=== PATIENT | female | born 1990 | race Caucasian/White ===

== ENCOUNTER 2018-10-03 08:17 | Emergency (ER) | payer BC ==
--- OUTSIDE RECORDS SUMMARY | 2018-10-03 08:19 | XMS REPORT | Clinical Summary ---
:1990 Author Organization [facility] Address [address] [place] [address] Care Team Providers Name Role Phone Arminda Irene MD Primary Care Provider Allergies Active Allergy Reactions Severity Noted Date Comments [place] 06/26/2017 Atomoxetine 06/26/2017 Sunscreen 06/26/2017 Medications Medication Sig Dispensed Refills Start Date End Date Status fexofenadine (RAMIOR) Take 180 mg by 0 Active 180 MG tablet mouth daily. 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 Last Filed Vital Signs Not on file Plan of Treatment Health Maintenance Due Date Last Done Comments CERVICAL CANCER SCREENING 2011 INFLUENZA VACCINE 04/18/2018 06/26/2017 Results Not on fileafter 10/02/2017 Insurance Payer Benefit Plan / Group Subscriber ID Type Phone Address BCBS BCBS CHOICE PPO/FEDERAL EMPL PPO xxxxxxxxxxxx PPO Advance Directives Patient has advance care planning documents, and code status on file. For more information, please contact:[address] [address] Code Status Date Activated Date Inactivated Comments Full Code 06/26/2017 9:26 PM 06/28/2017 1:38 AM Code Status decision reached by: Patient
--- OUTSIDE RECORDS SUMMARY | 2018-10-03 08:20 | XMS REPORT | Continuity of Care Document ---
:1990 Author Organization Interface Problems Problem Status Onset Classification Date Comments Source Date Reported Discharge 07/25/20 07/28/2017 [facility] Diagnosis: 17 Medical Contusion of Center unspecified front wall of thorax, initial encounter HALF-WAY Active 07/25/20 [place] [id number] [facility] RT ARM NUMBNESS, Active 06/29/20 [facility] MUSCLE RT ARM [address] [place] [address] WEAKNESS [place] RIGHT ARM NUMB, Active 06/29/20 [facility] N/V/CANDELARIO [address] [place] [address] Center Acute Resolved Problem 07/28/2017 [facility] cerebrovascular Medical accident (<[facility] Center ID="[id number]"> Confirmed</[facility]>) Migraines Active Problem 07/28/2017 [facility] PARESTHESIA OF Active [facility] SKIN [facility] Medications Medication Details Route Status Patient Ordering Order Source Instructions Provider Date tramadol 50 mg 50 mg=1 tab, PO, Active [facility] oral tablet BID, X 15 day, # 2017 Medical 30 tab, 0 Center Refill(s) Tylenol with 1 tab, PO, Q6H, Active [facility] Codeine #3 oral PRN Pain, X 7 2017 Medical tablet day, # 28 tab, 0 Center Refill(s) ibuprofen 600 mg, 1 tab, Inactive 07/25[facility] Route: PO, Drug 2017 Medical form: TAB, ONCE, Center Dosing Weight 77.273, kg, Priority: STAT, Start date: 07/25/17 12:33:00 HOME ADVISOR, Stop date: 07/25/17 12:33:00 CSTNotes: (Same as: Motrin) "Do Not Crush" Take with food. acetaminophen-c 1 tab, Route: Inactive 07/25[facility] odeine #3 PO, Drug Form: 2017 Medical TAB, Dosing Center Weight 77.273, kg, ONCE, STAT, Start date: 07/25/17 12:33:00 HOME ADVISOR, Stop date: 07/25/17 12:33:00 CSTNotes: Do not exceed 4gm/day of acetaminophen. (Same as: Tylenol with Codeine # 3) Visipaque 100 mL, Route: Inactive [facility] 320mg/ml IVP, Drug Form: 2017 Medical SOLN, Dosing Center Weight 77.273, kg, ONCALL, STAT, Start date: 07/25/17 11:04:00 HOME ADVISOR, Duration: 1 doses or times, Dose=2.2ml/kg, Max [id number] -- "To be infused by Radiology Staff ONLY" Saline Flush 10 mL, Route: Inactive [facility] 0.9% IVP, Drug Form: 2017 Medical INJ, Dosing Center Weight 77.273, kg, PRN, PRN Line Flush, Start date: 07/25/17 10:04:00 HOME ADVISOR, Duration: 30 day, Stop date: 08/24/17 10:03:00 CSTNotes: Same as: BD Posiflush Sterile ondansetron 4 mg, 2 mL, Inactive [facility] Route: IVP, Drug 2016 Medical form: INJ, ONCE, Center Dosing Weight 77.273, kg, Priority: STAT, Start date: 07/25/17 10:02:00 HOME ADVISOR, Stop date: 07/25/17 10:02:00 CSTNotes: (Same as: Zofran) MEDICATION WASTE Product Size: 4 mg Product Wasted: ___ mg morphine 4 mg, 1 mL, Inactive [facility] Sulfate Route: IVP, Drug 2016 Medical form: SOLN, Center ONCE, Dosing Weight 77.273, kg, Priority: STAT, Start date: 07/25/17 10:02:00 HOME ADVISOR, Stop date: 07/25/17 10:02:00 CSTNotes: (Same as:MORPhine Sulfate) atorvastatin 80 80 mg=1 tab, PO, Active [place] mg oral tablet Bedtime, # 60 2016 Medical tab, 2 Center Refill(s), Pharmacy: [facility]/pharmacy #[id number] magnesium oxide 400 mg=1 tab, Active [place] 400 mg oral PO, Daily, X 7 2016 Medical tablet day, # 7 tab, 0 Center Refill(s), Pharmacy: [facility]/pharmacy #[id number] Versed 0.5 mg, Route: Inactive [place] IV, ONCE, Dosing 2016 Medical Weight 72.727, Center kg, Start date: 06/30/17 17:06:00 CDT, Stop date: 06/30/17 17:06:00 CDT Ativan 1 mg, 0.5 mL, No Longer [place] Route: IVP, Drug Active 2016 Medical form: INJ, ONCE, Center Dosing Weight 72.727, kg, PRN Anxiety, Start date: 06/30/17 17:04:00 CDTNotes: (Same as: Ativan) ketOROLAC 15 15 mg, 1 mL, No Longer [place] mg/mL Route: IVP, Drug Active 2016 Medical injectable form: INJ, Q6H, Center solution Dosing Weight 72.727, kg, PRN Pain Score 4-6, Start date: 06/30/17 17:00:00 CDT, Duration: 4 day, Stop date: 07/04/17 16:59:00 CDTNotes: (Same as:Toradol) IV bolus must be given >15 seconds. Give IM administration slowly and deeply into the muscle. Not for use > 4 days. Ativan 1 mg, 0.5 mL, Inactive [place] Route: IVP, Drug 2016 Medical form: INJ, ONCE, Center Dosing Weight 72.727, kg, PRN Anxiety, Start date: 06/30/17 15:44:00 CDTNotes: (Same as: Ativan) Magnesium 2 gm, 50 mL, Inactive [place] Sulfate Route: IVPB, 2016 Medical Drug form: INJ, Center ONCE, Dosing Weight 72.727, kg, Start date: 06/30/17 13:03:00 CDT, Duration: 2 hr, Stop date: 06/30/17 13:03:00 CDTNotes: WASTE: F/P - Sink; E - Municipal Trash Bin NS (Bolus) IV 1,000 mL, 1,000 Inactive [place] ml/hr, Infuse 2017 Medical Over: 1 hr, Center Route: IV, 1,000, Drug form: INJ, ONCE, Priority: STAT, Dosing Weight 72.727 kg, Start date: 06/30/17 11:04:00 CDT, Duration: 1 doses or times, Stop date: 06/30/17 11:04:00 CDT aspirin 81 mg 81 mg, 1 tab, No Longer [place] tablet, enteric Route: PO, Drug Active 2016 Medical coated form: ECTAB, Center Daily, Dosing Weight 72.727, kg, Start date: 06/30/17 9:00:00 CDT, Duration: 30 day, Stop date: 07/29/17 9:00:00 CSTNotes: Do not crush or chew. (Same As: Ecotrin) Zofran 4 mg, 1 tab, No Longer [place] Route: PO, Drug Active 2016 Medical form: TAB, Q8H, Center Dosing Weight 72.727, kg, PRN Nausea, Start date: 06/30/17 7:43:00 CDT, Duration: 30 day, Stop date: 07/30/17 7:42:00 CSTNotes: (Same as: Zofran) Phenergan 6.25 mg, 0.5 Inactive [place] tab, Route: PO, 2016 Medical Drug form: TAB, Center ONCE, Dosing Weight 72.727, kg, Start date: 06/30/17 2:43:00 CDT, Stop date: 06/30/17 2:43:00 CDT Saline Flush 10 ml, Route: No Longer [place] 0.9% MISC, Drug Form: Active 2017 Medical INJ, Dosing Center Weight 72.727, kg, Q12H, Start date: 06/29/17 21:00:00 CDT, Duration: 30 day, Stop date: 07/29/17 9:00:00 CSTNotes: (Same as: BD Posiflush) atorvastatin 80 mg, 1 tab, No Longer [place] Route: PO, Drug Active 2016 Medical form: TAB, Center Bedtime, Dosing Weight 72.727, kg, Start date: 06/29/17 21:00:00 CDT, Duration: 30 day, Stop date: 07/28/17 21:00:00 CSTNotes: Same as Lipitor predniSONE 20 20 mg=1 tab, PO, Active [place] mg oral tablet Daily, # 10 tab, 2017 Medical 0 Refill(s) Center 200 ACTUAT 1 puff, INHALER, Active [place] Albuterol 0.09 Q6H, PRN for 2017 Medical MG/ACTUAT wheezing, # 8.5 Center Metered Dose gm, 0 Refill(s) Inhaler [ProAir HFA] Phenergan 12.5 mg, 0.5 mL, Inactive [place] Route: IVPB, 2016 Medical Drug form: INJ, Center ONCE, Dosing Weight 72.727, kg, PRN Nausea & Vomiting, Priority: NOW, Start date: 06/29/17 17:31:00 CDTNotes: Do not give IV push. (Same as: Phenergan) heparin 5,000 unit, 1 No Longer [place] mL, Route: Active 2016 Medical SUB-Q, Drug Center form: INJ, Q8H, Dosing Weight 72.727, kg, (For patients weighing Notes: porcine heparin Ativan 1 mg, 0.5 mL, Inactive [place] Route: IVP, Drug 2016 Medical form: INJ, ONCE, Center Dosing Weight 72.727, kg, PRN Anxiety, Start date: 06/29/17 15:40:00 CDTNotes: (Same as: Ativan) Ondansetron 4 mg, 2 mL, Inactive [facility] Route: IVP, Drug 2016 Medical form: INJ, ONCE, Center Dosing Weight 72.727, kg, Priority: STAT, Start date: 06/29/17 14:59:00 CDT, Stop date: 06/29/17 14:59:00 CDTNotes: (Same as: Zofran) MEDICATION WASTE Product Size: 4 mg Product Wasted: ___ mg Saline Flush 10 ml, Route: No Longer [place] 0.9% MISC, Drug Form: Active 2016 Medical INJ, Dosing Center Weight 72.727, kg, PRN, PRN Line Flush, Start date: 06/29/17 14:31:00 CDT, Duration: 30 day, Stop date: 07/29/17 13:30:00 CSTNotes: (Same as: BD Posiflush) Acetaminophen 650 mg, 2 tab, No Longer [place] Route: PO, Drug Active 2016 Medical form: TAB, Q4H, Center Dosing Weight 72.727, kg, PRN Pain 1-3/Temp > 99.5 F, Start date: 06/29/17 14:31:00 CDT, Duration: 30 day, Stop date: 07/29/17 14:30:00 CSTNotes: Do not exceed 4 gm/day. (Same as: Tylenol) Iohexol 100 mL, Route: Inactive [facility] IVP, Drug Form: 2016 Medical SOLN, Dosing Center Weight 72.727, kg, ONCALL, STAT, Start date: 06/29/17 13:37:00 CDT, Duration: 1 doses or times, Dose=2.2ml/kg, Max wans=994fm -- "To be infused by Radiology Staff ONLY" Saline Flush 10 mL, Route: No Longer [place] 0.9% IVP, Drug Form: Active 2016 Medical INJ, Dosing Center Weight 72.727, kg, PRN, PRN Line Flush, Start date: 06/29/17 13:19:00 CDT, Duration: 30 day, Stop date: 07/29/17 12:18:00 CSTNotes: (Same as: BD Posiflush) Allergies, Adverse Reactions, Alerts Substance Category Reaction Severity Reaction Status Date Comments Source type Reported Strattera Assertion Drug Active [facility] Immunizations Immunization Date Given Site Status Last Updated Comments Source Results Order Name Results Value Reference Date Interpretation Comments Source Range CHEM PANEL eGFR 110 07/25 Result Comment: The eGFR is calculated using the CKD-EPI formula. In most young, healthy individuals the eGFR will be >90 mL/ min/1.73m2. The eGFR declines with age. An eGFR of 60-89 may be normal in [facility] mL/min/1.7 some populations, particularly the elderly, for whom the CKD-EPI formula has not been extensively validated. Use of the eGFR is not recommended in the following populations: [address] Individuals with unstable creatinine concentrations, including patients and those with serious co-morbid conditions. Patients with extremes in muscle mass or diet. The data above are obtained from the National Kidney Disease Education Program (NKDEP) which additionally recommends that when the eGFR is used in patients with extremes of body mass index for purposes of drug dosing, the eGFR should be multiplied by the estimated BMI. CHEM PANEL Chloride Lvl 105 meq/L 95 - 109 07/25 [facility] 2017 [facility] Center CHEM PANEL AGAP 11.7 meq/L 10.0 - 07/25 [facility] 20.0 [facility] CHEM PANEL Creatinine 0.75 mg/dL 0.50 - 07/25 [facility] Lvl 1.40 [facility] CHEM PANEL Calcium Lvl 9.1 mg/dL 8.5 - 10.5 07/25 [facility] CHEM PANEL CO2 26 meq/L 24 - 32 07/25 [facility] CHEM PANEL Potassium Lvl 3.7 meq/L 3.5 - 5.1 07/25 [facility] CHEM PANEL Sodium Lvl 139 meq/L 135 - 145 07/25 [facility] CHEM PANEL Glucose Lvl 83 mg/dL 70 - 99 07/25 [facility] CHEM PANEL BUN 11 mg/dL 7 - 22 07/25 [facility]2016 [facility] URINE CHEM U Preg Negative Negative 07/25 [facility] (07/25/17 12:20 PM) Center IMMUNOLOGY CDC HIV 4th Negative Negative 07/25 [facility] *NA* Center (07/25/17 12:00 PM) Chest/Abdom Chest/Abdomen EXAM: CT CHEST WITH CONTRAST 07/25 - [facility] en/Pelvis w /Pelvis w IV /2016 - [facility] IV contrast contrast CT EXAM: CT ABDOMEN AND PELVIS WITH CONTRAST This report was dictated by a Goods Layer/Fellow. I have personally reviewed the images as Center CT well as the Resident's interpretation and agree with the findings. Read by: Yesenia Marshall Resident: Yesenia Marshall Dictated Date/time: 07/25/17 11:04 DATE: 07/25/2017 10:04 AM HOME ADVISOR Electronically Signed by: Feliciano Mcdaniels MD 07/25/17 12:00 FINAL REPORT INDICATION: - HALF-WAY, midline cervical/thoracic tenderness, concern for sternal fracture, LLQ pain COMPARISON: None TECHNIQUE: Volumetric CT acquisition of the chest, abdomen and pelvis following intravenous administration of contrast. Delayed imaging was then performed through the abdomen and pelvis, using a radiati on reduction technique. Axial, coronal and sagittal reformats. Contrast phases: Venous and delayed IV contrast: 95.3 ml of Visipaque Oral contrast: None. DLP: 3096 mGy-cm UT SECTION: ER FINDINGS: Lines and tubes: None. Lower Neck: Supraclavicular soft tissues are unremarkable. Thoracic Aorta and Mediastinum: A very small hematoma is seen about the sternomanubrial junction, with superficial subcutaneous stranding. No other mediastinal hematoma or thoracic aortic injury. Normal heart and pericardium. Lungs, Pleura, Diaphragm: No pulmonary contusions. Bilateral subsegmental atelectasis noted. No pleural effusion or pneumothorax. No diaphragmatic injury. Liver and biliary tree: Normal. No injury. No biliary abnormality. Gallbladder: Normal. No CT evidence of gallstones. No injury. Pancreas: Normal. No injury. Spleen: Normal. No injury. Adrenals: Normal. No injury. Kidneys and ureters: Normal. No injury. Bladder: Normal. No injury. Reproductive organs: No injury. An intrauterine device is noted in the uterus.A left ovarian simple cyst is noted, measuring 1.5 cm in diameter. Gastrointestinal tract: Normal. No bowel injury. Normal appendix. Peritoneum and retroperitoneum: No fluid collections or free air. Lymph nodes: Normal. Vasculature: No vascular injury. Spine/ Bones: The manubrium sternum is slightly posteriorly displaced with respect to the sternal body. The degree of displacement is about one quarter shaft width. No acute abnormality of the spine. No other bony injury. Soft tissues: Normal. IMPRESSION: 1. Posterior displacement of the manubrium sternum with surrounding retrosternal and presternal hematoma. 2. Bilateral subsegmental atelectasis. 3. No other acute abnormality noted. Brain wo Brain wo 07/25 - [facility] contrast CT contrast CT /2017 - [facility] EXAMINATION: CT head without contrast Read by: Kvng Jacinto MD Dictated Date/time: 07/25/17 12:07 Electronically Signed by: Kvng Jacinto MD 07/25/17 12:11 FINAL REPORT DATE: 07/25/2017 INDICATION: Right upper extremity weakness. FINDINGS: Noncontrast CT images of the head are compared to a study dated 2016. There is no edema, hemorrhage, or other acute intracranial abnormality. Aspect score 10. There is been significant interval progression of inflammatory sinus disease with near-total opacification of the maxillary air cells. IMPRESSION: No acute brain abnormality. Spine Spine EXAM: CT CERVICAL SPINE WITHOUT CONTRAST 07/25 - [facility] cervical wo cervical wo /2016 - Medical contrast CT contrast CT This report was dictated by a Goods Layer/Fellow. I have personally reviewed the images as Center well as the Resident's interpretation and agree with the findings. DATE: 07/25/2017 10:04 AM HOME ADVISOR Read by: Yesenia Marshall Resident: Yesenia Marshall Dictated Date/time: 07/25/17 10:43 Electronically Signed by: Feliciano Mcdaniels MD 07/25/17 11:16 FINAL REPORT INDICATION: - HALF-WAY, midline cervical/thoracic tenderness, concern for sternal fracture, LLQ pain COMPARISON: None TECHNIQUE: Volumetric acquisition of the cervical spine without contrast. Axial, sagittal and coronal reconstructions. IV contrast: None. DLP: 708 mGy-cm UT SECTION: ER FINDINGS: The spine is imaged from the skull base to the level of cervicothoracic junction. No acute fracture or malalignment is identified. The prevertebral and paravertebral soft tissues are unremarkable. No pneumothorax identified in the lung apices. IMPRESSION: No acute abnormality. Spine Spine entire MRI OF THE ENTIRE SPINE WITHOUT AND WITH CONTRAST [facility] w/wo w/wo contrast /2017 - Medical contrast MRI Center MRI DATE: 06/30/2017 at 4:10 PM. Read by: Joshua Pavon MD Dictated Date/time: 06/30/17 19:04 Electronically Signed by: Joshua Pavon MD 06/30/17 19:08 FINAL REPORT HISTORY: Right upper extremity weakness. T4 sensory level. TECHNIQUE: Pre and postcontrast multiplanar MR imaging was performed utilizing T1 and T2 weighting. 14 cc of MultiHance contrast was administered intravenously. FINDINGS: The bony vertebrae from C1 through the sacrum are intact and in normal anatomic alignment. There is normal marrow signal arising from visualized osseous structures. C2-C3 to L5-S1: The intervertebral discs are well-maintained demonstrating normal height and hydration. There are no disc bulges or disc protrusions. There is no compromise of the spinal canal or the neural foramina. The signal within the brainstem and spinal cord is normal. There is no abnormal contrast enhancement. Conus medullaris terminates at the T12-L1 level. There is no cord tethering. IMPRESSION: 1. Normal MRI of the entire spine without and with contrast. LIPIDS CHD Risk 5.34 3.90 - 06/29 [facility] 5.80 [facility] LIPIDS HDL 41 mg/dL >=61 mg/dL 06/29 [facility] LIPIDS Chol 219 mg/dL <=199 06/29 [facility] mg/dL [facility] LIPIDS Trig 166 mg/dL <=149 06/29 [facility] mg/dL [facility] LIPIDS LDL 145 mg/dL <=99 mg/dL 06/29 [facility] (Calculated) [facility] LIPIDS VLDL 33 06/29 [facility] SPECIAL Hgb A1C 5.1 % <=5.6 % 06/29 [facility] CHEMISTRY [facility] DRUG SCREEN U Phencyc Scr Negative Negative 06/29 [facility] *NA* [place] (06/29/17 2:45 PM) DRUG SCREEN U [facility]ab [facility] [place] (06/29/17 2:45 PM) DRUG SCREEN UDS Note See Note 06/29 [facility] (06/29/17 2:45 PM) [place] DRUG SCREEN U Opiate Scr Negative Negative 06/29 [facility] *NA* [place] (06/29/17 2:45 PM) DRUG SCREEN U Cocaine Scr Negative Negative 06/29 [facility] *NA* [place] (06/29/17 2:45 PM) DRUG SCREEN U Amph Scr Negative Negative 06/29 [facility] [place] (06/29/17 2:45 PM) DRUG SCREEN U Xochitl Scr Positive Negative 06/29 [facility] [place] (06/29/17 2:45 PM) DRUG SCREEN U Benzodia Negative Negative 06/29 [facility] *NA* [place] (06/29/17 2:45 PM) URINE AND UA 2.0 EU/dL 0.1 - 1.0 06/29 [facility] Urobilinogen [facility] URINE AND UA Nitrite Negative Negative 06/29 [facility] STOOL [facility] (06/29/17 2:45 PM) [place] URINE AND UA Blood Trace Negative 06/29 [facility] Medical ABN* [place] (06/29/17 2:45 PM) URINE AND UA Leuk Est Negative Negative 06/29 [facility] (06/29/17 2:45 PM) Center URINE AND UA pH 6.5 5.0 - 8.0 06/29 [facility] STOOL [facility] URINE AND UA Bili Negative Negative 06/29 [facility] STOOL Medical *NA* [place] (06/29/17 2:45 PM) URINE AND UA Glucose Negative Negative 06/29 [facility] (06/29/17 2:45 PM) [place] URINE AND UA Protein Negative Negative 06/29 [facility] (06/29/17 2:45 PM) [place] URINE AND UA Color Yellow Yellow 06/29 [facility] Medical *NA* [place] (06/29/17 2:45 PM) URINE AND UA Turbidity Clear Clear 06/29 [facility] (06/29/17 2:45 PM) [place] URINE AND UA Ketones Negative Negative 06/29 [facility] *NA* [place] (06/29/17 2:45 PM) URINE AND UA Spec Grav 1.140 <=1.030 06/29 [facility] [address] [place] [address] URINE AND UA Sq Epi Few /LPF Few /LPF 06/29 [facility] URINE AND UA RBC 0-2 /HPF 0 - 2 06/29 [facility] URINE AND UA WBC 0-2 /HPF None Seen 06/29 [facility] STOOL /[facility] URINE AND UA Bacteria Occasional None Seen 06/29 [facility] STOOL /HPF /HPF [facility] IMMUNOLOGY CDC HIV 4th Negative Negative 06/29 [facility] *NA* [place] (06/29/17 2:33 PM) CARDIAC Total CK 46 unit/L 12 - 191 06/29 [facility] ENZYMES [facility] CARDIAC CK MB null 0.5 - 3.6 06/29 [facility] ENZYMES [facility] CARDIAC Troponin-I null 0.00 - 06/29 [facility] ENZYMES 0.40 [facility] CARDIAC CK-MB INDEX null 0.0 - 2.5 06/29 [facility] CHEM PANEL eGFR 87 06/29 Result Comment: The eGFR is calculated using the CKD-EPI formula. In most young, healthy individuals the eGFR will be >90 mL/ min/1.73m2. The eGFR declines with age. An eGFR of 60-89 may be normal in [facility] mL/min/1.7 some populations, particularly the elderly, for whom the CKD-EPI formula has not been extensively validated. Use of the eGFR is not recommended in the following populations: [address] Individuals with unstable creatinine concentrations, including patients and those with serious co-morbid conditions. Patients with extremes in muscle mass or diet. The data above are obtained from the National Kidney Disease Education Program (NKDEP) which additionally recommends that when the eGFR is used in patients with extremes of body mass index for purposes of drug dosing, the eGFR should be multiplied by the estimated BMI. CHEM PANEL Sodium Lvl 139 meq/L 135 - 145 06/29 [facility] CHEM PANEL CO2 26 meq/L 24 - 32 06/29 2016 [facility] CHEM PANEL Calcium Lvl 9.1 mg/dL 8.5 - 10.5 06/29 2016 [facility] CHEM PANEL Chloride Lvl 104 meq/L 95 - 109 06/[address] CHEM PANEL Potassium Lvl 4.1 meq/L 3.5 - 5.1 06/[address] CHEM PANEL Creatinine 0.91 mg/dL 0.50 - 06/29 [facility] Lvl 1.40 [facility] CHEM PANEL AGAP 13.1 meq/L 10.0 - 06/29 [place] 20.0 [facility] CHEM PANEL Glucose Lvl 95 mg/dL 70 - 99 06/[address] [place] [address] CHEM PANEL BUN 10 mg/dL 7 - 22 06/[address] [place] [address] HEMATOLOGY INR 0.99 0.85 - 06/29 [place] 1.17 [facility] HEMATOLOGY PT 13.3 s 12.0 - 06/29 [place] 14.7 [facility] HEMATOLOGY PTT 30.7 s 22.9 - 06/29 [place] 35.8 [facility] HEMATOLOGY Platelet 286 K/CMM 133 - 450 06/29 [facility] HEMATOLOGY MPV 9.5 fL 7.4 - 10.4 06/[address] [place] [address] HEMATOLOGY RDW 13.4 % 11.5 - 06/29 [place] 14.5 [facility] HEMATOLOGY WBC 9.9 K/CMM 3.7 - 10.4 06/[address] [place] [address] HEMATOLOGY RBC 5.43 M/CMM 4.20 - 06/29 [place] 5.40 [facility] HEMATOLOGY MCV 86.9 fL 80.0 - 06/29 [facility] [place] 98.0 [facility] HEMATOLOGY Hgb 15.6 g/dL 12.0 - 06/29 16.0 [facility] HEMATOLOGY MCH 28.8 pg 27.0 - 06/29 31.0 [facility] HEMATOLOGY MCHC 33.2 g/dL 32.0 - 06/29 36.0 [facility] HEMATOLOGY Hct 47.1 % 36.0 - 06/29 [place] 48.0 [facility] HEMATOLOGY Segs-Bands # 6.9 K/CMM 1.5 - 8.1 06/29 [facility] HEMATOLOGY Lymphocytes # 1.6 K/CMM 1.0 - 5.5 06/29 2016 [facility] HEMATOLOGY Eosinophils # 0.3 K/CMM 0.0 - 0.5 06/29 [facility] HEMATOLOGY Monocytes # 1.1 K/CMM 0.0 - 0.8 06/29 [facility] HEMATOLOGY Lymphocytes 16.1 % 20.0 - 06/29 40.0 [facility] HEMATOLOGY Segs 69.7 % 45.0 - 06/29 [place] 75.0 /2016 [facility] HEMATOLOGY Monocytes 11.0 % 2.0 - 12.0 06/29 [facility] HEMATOLOGY Eosinophils 2.7 % 0.0 - 4.0 06/29 [facility] HEMATOLOGY Basophils 0.5 % 0.0 - 1.0 06/[address] Brain wo Brain wo EXAM: MRI BRAIN WITHOUT CONTRAST 06/29 [facility] contrast contrast [facility] DATE: 06/29/2017 4:30 PM CDT Read by: Renny Reyes MD Dictated Date/time: 06/29/17 16:47 Electronically Signed by: Renny Reyes MD 06/29/17 16:55 FINAL REPORT INDICATION: 27 years old Female patient with history of right arm weakness and sensory loss. COMPARISON: CT Scan of the brain dated 06/29/2017 at 1:30 PM TECHNIQUE: Axial DWI, axial T2 FLAIR, axial GRE sequences were obtained through the brain as per limited stroke protocol. FINDINGS: T2 FLAIR sequence is motion degraded. Diffusion-weighted images do not demonstrate any abnormal restricted diffusion to suggest acute infarct. The signal intensities of the basal ganglia, thalami, brainstem, cerebellar hemispheres are within normal limits. There is no mass effect or midline shift. No evidence of acute or chronic intracranial hemorrhage is seen. Ventricles are normal in size and configuration. No pathological extra- axial fluid collection is identified. Cerebral sulci and basal cisterns are well preserved. Mucosal thickening along the inferior wall of the both maxillary sinuses, remaining visualized paranasal sinuses are clear. Visualized mastoid air cells are clear. Visualized orbits appear grossly unremarkable. IMPRESSION: 1. No evidence of acute infarct or intracranial hemorrhage. 2. No definite abnormality on limited stroke protocol MRI. Brain Brain Stroke EXAM: CT BRAIN WITHOUT CONTRAST 06/29 [facility] Stroke wo wo contrast /2016 - Medical contrast CT CT This report was dictated by a Goods Layer/ Fellow. I have personally reviewed the images as Center well as the Resident's interpretation and agree with the findings. DATE: 06/29/2017 1331 hours Read by: Serge Monteiro MD Resident: Serge Monteiro MD Dictated Date/time: 06/29/17 14:00 Electronically Signed by: Shanthi Haddad 06/29/17 15:14 FINAL REPORT INDICATION: Right upper extremity weakness COMPARISON: None. TECHNIQUE: Routine axial CT images of the brain were obtained. Coronal and sagittal reformats are provided. IV contrast: None. DLP: 737 mGy-cm FINDINGS: Non-contrast images of the head demonstrate no edema, hemorrhage, mass lesion or other acute intracranial abnormality. There is no chronic abnormality. ASPECTS: 10 Laterality: none Caudate: normal Internal capsule: normal Lenticular: normal Insula: normal M1: normal M2: normal M3: normal M4: normal M5: normal M6: normal The sinuses and skull base are unremarkable. IMPRESSION: No sign of acute cortical infarct or parenchymal hermorrhage. Brain/Neck Brain/Neck EXAM: CTA BRAIN 06/29 [facility] Stroke Stroke /2016 - Medical perfusion perfusion CTA EXAM: CTA NECK This report was dictated by a Goods Layer/Fellow. I have personally reviewed the images as Center CTA well as the Resident's interpretation and agree with the findings. EXAM: CT PERFUSION BRAIN Read by: Yaquelin Frausto MD Resident: Yaquelin Frausto MD Dictated Date/time: 06/29/17 14:41 Electronically Signed by: Shanthi Haddad 06/30/17 08:23 FINAL REPORT DATE: 06/29/2017 1:34 PM CDT INDICATION: Right upper extremity weakness COMPARISON: CT brain without contrast 06/29/2017 TECHNIQUE: - Dynamic CT perfusion images on a limited area of the brain parenchyma are performed during bolus injection of iodinated contrast material. Color maps of relative cerebral blood flow, relative cerebral blood volume, time to peak, and mean transit time are created on an independent workstation and are submitted along with the source image data. -Rapid acquisition spiral CT images of the brain and neck were obtained between the aortic arch and the cranial vertex during intravenous infusion of iodinated contrast for the purposes of CT angiograph y. 3-D CT angiographic images are created using MIP technique at the acquisition workstation. The source images are also presented for interpretation. IV contrast: 98 mL of 350 Omnipaque DLP: 3386 mGy-cm FINDINGS: NECK CTA: Aortic arch: No origin stenosis is identified. The vertebral artery origins are patent bilaterally. Carotid arteries: The cervical common carotid arteries and cervical internal carotid arteries have a normal course, caliber, and contour. There are areas of calcification at the carotid bifurcations. No hemodynamically significant stenosis of the carotid bifurcations or internal carotid arteries is present by NASCET criteria. There is no evidence of vascular injury. Vertebral arteries: The vertebral arteries have a normal caliber and contour. The left vertebral artery originates from the aortic arch. The soft tissues of the neck and other incidental structures are normal. BRAIN CTA: Anterior circulation: Normal appearance and a standard branching pattern. No branch occlusion, vascular injury, arteritis, vascular malformation or aneurysm is identified. Posterior circulation: Normal appearance and a standard branching pattern. No branch occlusion, vascular injury, arteritis, vascular malformation or aneurysm is identified. The [place] of [place] is normal. There is no evidence of cortical collateral circulation, collateral score is not applicable. The major venous sinuses are normal. There is asymmetry of the internal jugular vein, with prominence of the right internal jugular vein especially near the skull base. There is no vein thrombosis. The brain parenchyma and other incidental structures are unremarkable. CT PERFUSION: There is no regional abnormality in cerebral blood flow, cerebral blood volume, or transit time in the imaged areas of the brain to suggest active oligemia or infarction. IMPRESSION: 1. Normal CTA of the head. 2. Normal CTA of the neck. 3. Normal CT perfusion. (All qualitative and quantitative assessments of carotid bifurcation and proximal internal carotid artery stenosis are made referencing the distal internal carotid artery {NASCET criteria}.) Chest 1view Chest 1view EXAM: XR CHEST 1 VIEW 06/29 - [facility] DX - Medical This report was dictated by a Goods Layer/Fellow. I have personally reviewed the images as Center well as the Resident's interpretation and agree with the findings. DATE: 06/29/2017 1:19 PM CDT. Read by: Melisa Ruiz ( Fellow Resident: Melisa Ruiz (Fellow Dictated Date/time: 06/29/17 13:50 Electronically Signed by: David Angeles MD 06/29/17 14:17 FINAL REPORT INDICATION: Pain. COMPARISON: None. TECHNIQUE: AP chest. UT SECTION: ER FINDINGS: Lines, tubes and hardware: None. Lungs and pleura: Lungs are clear. No focal consolidation, pleural effusion , or pneumothorax is identified. Pulmonary vascularity is normal. Heart and mediastinum: The heart size is normal for technique. The mediastinal contours are normal. Bones: No acute skeletal abnormality is identified. Note made of gaseous distention of the stomach. IMPRESSION: No acute radiographic abnormality. Vital Signs Vital Sign Value Date Comments Source Respitory Rate 18 07/25/2017 [facility] Systolic (mm Hg) 123 07/25/2017 [facility] Diastolic (mm Hg) 80 07/25/2017 [facility] Temperature Oral (F) 98.9 F 07/25/2017 [facility] Heart Rate 81 07/25/2017 [facility] Systolic (mm Hg) 141 07/25/2017 [facility] Diastolic (mm Hg) 68 07/25/2017 [facility] Respitory Rate 18 07/25/2017 [facility] Heart Rate 80 07/25/2017 [facility] Weight 77.273 07/25/2017 [facility] Height 165.1 cm 07/25/2017 [facility] BMI Calculated 28.35 07/25/2017 [facility] Temperature Oral (F) 98.0 F 07/25/2017 [facility] Systolic (mm Hg) 134 07/25/2017 [facility] Diastolic (mm Hg) 85 07/25/2017 [facility] Heart Rate 70 07/25/2017 [facility] Respitory Rate 20 07/25/2017 [facility] Systolic (mm Hg) 111 07/01/2017 [facility] Diastolic (mm Hg) 70 07/01/2017 [facility] Respitory Rate 18 07/01/2017 [facility] Heart Rate 107 07/01/2017 [facility] Temperature Oral (F) 99.3 F 07/01/2017 [facility] Systolic (mm Hg) 129 06/30/2017 [facility] Diastolic (mm Hg) 63 06/30/2017 [facility] Systolic (mm Hg) 119 06/30/2017 [facility] Diastolic (mm Hg) 62 06/30/2017 [facility] Respitory Rate 18 06/30/2017 [facility] Heart Rate 89 06/30/2017 [facility] Temperature Oral (F) 97.4 F 06/30/2017 [facility] Heart Rate 102 06/30/2017 [facility] Temperature Oral (F) 98.3 F 06/30/2017 [facility] Respitory Rate 18 06/30/2017 [facility] Weight 72.727 06/29/2017 [facility] Height 165.1 cm 06/29/2017 [facility] BMI Calculated 26.68 06/29/2017 [facility] Weight 72.727 06/29/2017 [facility] BMI Calculated 25.88 06/29/2017 [facility] Height 167.64 cm 06/29/2017 [facility] Encounters Location Location Encounter Encounter Reason Attending ADM DC Status Source Details Type Number For Provider Date Date Visit [facility] [id number] Whitney 06/29 07/01 [facility] Roberto Choudhary /2016 [facility] [id number] Leeanna 07/25 07/25 [facility] Shanon /2016 [facility] Procedures Procedure Code Date Perfomer Comments Source Insertion of IUD [id number] [facility]
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
--- OUTSIDE RECORDS SUMMARY | 2018-10-03 08:21 | XMS REPORT | Summary of Care ---
:1990 Author Organization [facility] Address [address] [place] [id number] Encounter HQ Violetar_betty(FIN) [id number] Date(s): 06/29/17 - 06/30/[address] Professional Services provided by [facility] [place] [address]- Discharge Disposition: Home or Self Care Attending Physician: Whitney Choudhary MD Admitting Physician: Whitney Choudhary MD Vital Signs Most recent to oldest 1 2 3 [Reference Range]: Height 165.1 cm 167.64 cm (06/29/17 5:33 PM) (06/29/17 1:00 PM) Temperature Oral [96.4-99.1 99.3 DegF 97.4 DegF 98.3 DegF DegF] *HI* (06/30/17 3:08 PM) (06/30/17 11:52 AM) (06/30/17 7:23 PM) Blood Pressure 111/70 mmHg 129/63 mmHg 119/62 mmHg [90-140/60-90 mmHg] (06/30/17 7:23 PM) (06/30/17 6:00 PM) (06/30/17 5:45 PM) Respiratory Rate [14-20 18 BRMIN 18 BRMIN 18 BRMIN BRMIN] (06/30/17 7:23 PM) (06/30/17 3:08 PM) (06/30/17 11:52 AM) Peripheral Pulse Rate 107 bpm 89 bpm 102 bpm [60-100 bpm] *HI* (06/30/17 3:08 PM) *HI* (06/30/17 7:23 PM) (06/30/17 11:52 AM) Weight 72.727 kg 72.727 kg (06/29/17 5:33 PM) (06/29/17 1:00 PM) Body Mass Index 26.68 m2 25.88 m2 (06/29/17 5:33 PM) (06/29/17 1:00 PM) Problem List Condition Effective Dates Status Health Status Informant Acute cerebrovascular accident Resolved (CVA)(Confirmed) Allergies, Adverse Reactions, Alerts Substance Reaction Severity Status Strattera Active Medications acetaminophen 650 mg, 2 tab, Route: PO, Drug form: TAB, Q4H, Dosing Weight 72.727, kg, PRN Pain 1-3/Temp > 99.5 F, Start date: 06/29/17 14:31:00 CDT, Duration: 30 day, Stop date: 07/29/17 14:30:00 IMPORTER OR EXPORTER Notes: Do not exceed 4 gm/day. (Same as: Tylenol) Start Date: 06/29/17 Stop Date: 07/01/17 Status: Discontinuedaspirin 81 mg tablet, enteric coated 81 mg, 1 tab, Route: PO, Drug form: ECTAB, Daily, Dosing Weight 72.727, kg, Start date: 06/30/17 9:00:00 CDT, Duration: 30 day, Stop date: 07/29/17 9:00:00 IMPORTER OR EXPORTER Notes: Do not crush or chew.(Same As: Ecotrin) Start Date: 06/30/17 Stop Date: 07/01/17 Status: DiscontinuedAtivan 1 mg, 0.5 mL, Route: IVP, Drug form: INJ, ONCE, Dosing Weight 72.727, kg, PRN Anxiety, Start date: 06/30/17 17:04:00 CDT Notes: (Same as: Ativan) Start Date: 06/30/17 Stop Date: 07/01/17 Status: DiscontinuedAtivan 1 mg, 0.5 mL, Route: IVP, Drug form: INJ, ONCE, Dosing Weight 72.727, kg, PRN Anxiety, Start date: 06/29/17 15:40:00 CDT Notes: (Same as: Ativan) Start Date: 06/29/17 Stop Date: 06/29/17 Status: CompletedAtivan 2 mg, Route: IVP, Drug form: INJ, ONCE, Dosing Weight 72.727, kg, PRN Anxiety, Start date: 06/29/17 15:40:00 CDT Start Date: 06/29/17 Stop Date: 06/29/17 Status: DeletedAtivan 1 mg, 0.5 mL, Route: IVP, Drug form: INJ, ONCE, Dosing Weight 72.727, kg, PRN Anxiety, Start date: 06/30/17 15:44:00 CDT Notes: (Same as: Ativan) Start Date: 06/30/17 Stop Date: 06/30/17 Status: Completedatorvastatin 80 mg, 1 tab, Route: PO, Drug form: TAB, Bedtime, Dosing Weight 72.727, kg, Start date: 06/29/17 21:00:00 CDT, Duration: 30 day, Stop date: 07/28/17 21:00: 00 IMPORTER OR EXPORTER Notes: Same as Lipitor Start Date: 06/29/17 Stop Date: 07/01/17 Status: Discontinuedatorvastatin 80 mg oral tablet 80 mg=1 tab, PO, Bedtime, # 60 tab, 2 Refill(s), Pharmacy: [facility]/pharmacy #[id number] Start Date: 06/30/17 Status: Orderedheparin 5,000 unit, 1 mL, Route: SUB-Q, Drug form: INJ, Q8H, Dosing Weight 72.727, kg, ( For patients weighing < 100 kg)., Start date: 06/29/17 16:00:00 CDT, Duration : 30 day, Stop date: 07/29/17 8:00:00 IMPORTER OR EXPORTER Notes: porcine heparin Start Date: 06/29/17 Stop Date: 07/01/17 Status: DiscontinuedketOROLAC 15 mg/mL injectable solution 15 mg, 1 mL, Route: IVP, Drug form: INJ, Q6H, Dosing Weight 72.727, kg, PRN Pain Score 4-6, Start date: 06/30/17 17:00:00 CDT, Duration: 4 day, Stop date: 07/04/17 16:59:00 CDT Notes: (Same as:Toradol) IV bolus must be given >15 seconds. Give IM administration slowly and deeply into the muscle. Not for use > 4 days. Start Date: 06/30/17 Stop Date: 07/01/17 Status: Discontinuedmagnesium oxide 400 mg oral tablet 400 mg=1 tab, PO, Daily, X 7 day, # 7 tab, 0 Refill(s), Pharmacy: [facility]/pharmacy # [id number] Start Date: 06/30/17 Stop Date: 07/07/17 Status: Orderedmagnesium sulfate 2 gm in Water 50 ml 2 gm, 50 mL, Route: IVPB, Drug form: INJ, ONCE, Dosing Weight 72.727, kg, Start date: 06/30/17 13:03:00 CDT, Duration: 2 hr, Stop date: 06/30/17 13:03:00 CDT Notes: WASTE: F/P - Sink; E - Municipal Trash Bin Start Date: 06/30/17 Stop Date: 06/30/17 Status: CompletedNS (Bolus) IV 1,000 mL, 1,000 ml/hr, Infuse Over: 1 hr, Route: IV, 1,000, Drug form: INJ, ONCE , Priority: STAT, Dosing Weight 72.727 kg, Start date: 06/30/17 11:04:00 CDT, Duration: 1 doses or times, Stop date: 06/30/17 11:04:00 CDT Start Date: 06/30/17 Stop Date: 06/30/17 Status: CompletedOmnipaque 350mg/ml 100 mL, Route: IVP, Drug Form: SOLN, Dosing Weight 72.727, kg, ONCALL, STAT, Start date: 06/29/17 13:37:00 CDT, Duration: 1 doses or times, Dose=2.2ml/kg, Max [id number] -- "To be infused by RadiologyStaff ONLY" Start Date: 06/29/17 Stop Date: 06/29/17 Status: Completedondansetron 4 mg, 2 mL, Route: IVP, Drug form: INJ, ONCE, Dosing Weight 72.727, kg, Priority : STAT, Start date: 06/29/17 14:59:00 CDT, Stop date: 06/29/17 14:59:00 CDT Notes: (Same as: Zofran) MEDICATION WASTE Product Size: 4 mgProduct Wasted: ___ mg Start Date: 06/29/17 Stop Date: 06/29/17 Status: CompletedPhenergan 12.5 mg, 0.5 mL, Route: IVPB, Drug form: INJ, ONCE, Dosing Weight 72.727, kg, PRN Nausea & Vomiting, Priority: NOW, Start date: 06/29/17 17:31:00 CDT Notes: Do not give IV push. (Same as: Phenergan) Start Date: 06/29/17 Stop Date: 06/29/17 Status: CompletedPhenergan 6.25 mg, 0.5 tab, Route: PO, Drug form: TAB, ONCE, Dosing Weight 72.727, kg, Start date: 06/30/17 2:43:00 CDT, Stop date: 06/30/17 2:43:00 CDT Start Date: 06/30/17 Stop Date: 06/30/17 Status: CompletedpredniSONE 20 mg oral tablet 20 mg=1 tab, PO, Daily, # 10 tab, 0 Refill(s) Start Date: 06/29/17 Stop Date: 07/09/17 Status: OrderedProAir HFA 90 mcg/inh inhalation aerosol with adapter 1 puff, INHALER, Q6H, PRN for wheezing, # 8.5 gm, 0 Refill(s) Start Date: 06/29/17 Status: OrderedSaline Flush 0.9% 10 ml, Route: MISC, Drug Form: INJ, Dosing Weight 72.727, kg, Q12H, Start date: 06/29/17 21:00:00 CDT, Duration: 30 day, Stop date: 07/29/17 9:00:00 IMPORTER OR EXPORTER Notes: (Same as: BD Posiflush) Start Date: 06/29/17 Stop Date: 07/01/17 Status: DiscontinuedSaline Flush 0.9% 10 ml, Route: MISC, Drug Form: INJ, Dosing Weight 72.727, kg, PRN, PRN Line Flush, Start date: 06/29/17 14:31:00 CDT, Duration: 30 day, Stop date: 07/29/17 13:30:00 IMPORTER OR EXPORTER Notes: (Same as: BD Posiflush) Start Date: 06/29/17 Stop Date: 07/01/17 Status: DiscontinuedSaline Flush 0.9% 10 mL, Route: IVP, Drug Form: INJ, Dosing Weight 72.727, kg, PRN, PRN Line Flush , Start date: 06/29/17 13:19:00 CDT, Duration: 30 day, Stop date: 07/29/17 12:18 :00 IMPORTER OR EXPORTER Notes: (Same as: BD Posiflush) Start Date: 06/29/17 Stop Date: 07/01/17 Status: DiscontinuedVersed 0.5 mg, Route: IV, ONCE, Dosing Weight 72.727, kg, Start date: 06/30/17 17:06: 00 CDT, Stop date: 06/30/17 17:06:00 CDT Start Date: 06/30/17 Stop Date: 06/30/17 Status: CompletedZofran 4 mg, 1 tab, Route: PO, Drug form: TAB, Q8H, Dosing Weight 72.727, kg, PRN Nausea, Start date: 06/30/17 7:43:00 CDT, Duration: 30 day, Stop date: 07/30/17 7:42:00 IMPORTER OR EXPORTER Notes: (Same as: Zofran) Start Date: 06/30/17 Stop Date: 07/01/17 Status: Discontinued Results ELECTROLYTES Most recent to oldest [Reference Range]: 1 Sodium Lvl [135-145 mEq/L] 139 mEq/L (06/29/17 1:31 PM) Potassium Lvl [3.5-5.1 mEq/L] 4.1 mEq/L (06/29/17 1:31 PM) Chloride Lvl [95-109 mEq/L] 104 mEq/L (06/29/17 1:31 PM) CO2 [24-32 mEq/L] 26 mEq/L (06/29/17 1:31 PM) AGAP [10.0-20.0 mEq/L] 13.1 mEq/L (06/29/17 1:31 PM) CHEM PANEL Most recent to oldest [Reference Range]: 1 Creatinine Lvl [0.50-1.40 mg/dL] 0.91 mg/dL (06/29/17 1:31 PM) eGFR 87 mL/min/1.73m2 1 *NA* (06/29/17 1:31 PM) BUN [7-22 mg/dL] 10 mg/dL (06/29/17 1:31 PM) Glucose Lvl [70-99 mg/dL] 95 mg/dL (06/29/17 1:31 PM) Calcium Lvl [8.5-10.5 mg/dL] 9.1 mg/dL (06/29/17 1:31 PM) 1Result Comment: The eGFR is calculated [...] eGFR should be multiplied by the estimated BMI.CARDIAC ENZYMES Most recent to oldest [Reference Range]: 1 Total CK [12-191 unit/L] 46 unit/L (06/29/17 1:31 PM) CK MB [0.5-3.6 ng/mL] <0.5 ng/mL (06/29/17 1:31 PM) CK MB Index [0.0-2.5] <1.1 (06/29/17 1:31 PM) Troponin-I [0.00-0.40 ng/mL] <0.02 ng/mL (06/29/17 1:31 PM) LIPIDS Most recent to oldest [Reference Range]: 1 CHD Risk [3.90-5.80] 5.34 (06/29/17 3:42 PM) Chol [<=199 mg/dL] 219 mg/dL *HI* (06/29/17 3:42 PM) Trig [<=149 mg/dL] 166 mg/dL *HI* (06/29/17 3:42 PM) HDL [>=61 mg/dL] 41 mg/dL *LOW* (06/29/17 3:42 PM) LDL (Calculated) [<=99 mg/dL] 145 mg/dL *HI* (06/29/17 3:42 PM) VLDL 33 *NA* (06/29/17 3:42 PM) SPECIAL CHEMISTRY Most recent to oldest [Reference Range]: 1 Hgb A1C [<=5.6 %] 5.1 % (06/29/17 3:42 PM) DRUG SCREEN Most recent to oldest [Reference Range]: 1 U Amph Scr [Negative] Negative *NA* (06/29/17 2:45 PM) U Xochitl Scr [Negative] Positive *ABN* (06/29/17 2:45 PM) U Benzodia Scr [Negative] Negative *NA* (06/29/17 2:45 PM) U Cocaine Scr [Negative] Negative *NA* (06/29/17 2:45 PM) U Opiate Scr [Negative] Negative *NA* (06/29/17 2:45 PM) U Phencyc Scr [Negative] Negative *NA* (06/29/17 2:45 PM) U Cannab Scr [Negative] Negative *NA* (06/29/17 2:45 PM) UDS Note See Note (06/29/17 2:45 PM) URINE AND STOOL Most recent to oldest [Reference Range]: 1 UA Turbidity [Clear] Clear (06/29/17 2:45 PM) UA Color [Yellow] Yellow *NA* (06/29/17 2:45 PM) UA pH [5.0-8.0] 6.5 (06/29/17 2:45 PM) UA Spec Grav [<=1.030] 1.140 *NA* (06/29/17 2:45 PM) UA Glucose [Negative] Negative (06/29/17 2:45 PM) UA Blood [Negative] Trace *ABN* (06/29/17 2:45 PM) UA Ketones [Negative] Negative *NA* (06/29/17 2:45 PM) UA Protein [Negative] Negative (06/29/17 2:45 PM) UA Urobilinogen [0.1-1.0 EU/dL] 2.0 EU/dL *HI* (06/29/17 2:45 PM) UA Bili [Negative] Negative *NA* (06/29/17 2:45 PM) UA Leuk Est [Negative] Negative (06/29/17 2:45 PM) UA Nitrite [Negative] Negative (06/29/17 2:45 PM) UA WBC [None Seen /HPF] 0-2 /HPF (06/29/17 2:45 PM) UA RBC [0-2 /HPF] 0-2 /HPF (06/29/17 2:45 PM) UA Bacteria [None Seen /HPF] Occasional /HPF (06/29/17 2:45 PM) UA Sq Epi [Few /LPF] Few /LPF (06/29/17 2:45 PM) IMMUNOLOGY Most recent to oldest [Reference Range]: 1 CDC HIV 4th GEN [Negative] Negative *NA* (06/29/17 2:33 PM) HEMATOLOGY Most recent to oldest [Reference Range]: 1 WBC [3.7-10.4 K/CMM] 9.9 K/CMM (06/29/17 1:31 PM) RBC [4.20-5.40 M/CMM] 5.43 M/CMM *HI* (06/29/17 1:31 PM) Hgb [12.0-16.0 g/dL] 15.6 g/dL (06/29/17 1:31 PM) Hct [36.0-48.0 %] 47.1 % (06/29/17 1:31 PM) MCV [80.0-98.0 fL] 86.9 fL (06/29/17 1:31 PM) MCH [27.0-31.0 pg] 28.8 pg (06/29/17 1:31 PM) MCHC [32.0-36.0 g/dL] 33.2 g/dL (06/29/17 1:31 PM) RDW [11.5-14.5 %] 13.4 % (06/29/17 1:31 PM) Platelet [133-450 K/CMM] 286 K/CMM (06/29/17 1:31 PM) MPV [7.4-10.4 fL] 9.5 fL (06/29/17 1:31 PM) Segs [45.0-75.0 %] 69.7 % (06/29/17 1:31 PM) Lymphocytes [20.0-40.0 %] 16.1 % *LOW* (06/29/17 1:31 PM) Monocytes [2.0-12.0 %] 11.0 % (06/29/17 1:31 PM) Eosinophils [0.0-4.0 %] 2.7 % (06/29/17 1:31 PM) Basophils [0.0-1.0 %] 0.5 % (06/29/17 1:31 PM) Segs-Bands # [1.5-8.1 K/CMM] 6.9 K/CMM (06/29/17 1:31 PM) Lymphocytes # [1.0-5.5 K/CMM] 1.6 K/CMM (06/29/17 1:31 PM) Monocytes # [0.0-0.8 K/CMM] 1.1 K/CMM *HI* (06/29/17 1:31 PM) Eosinophils # [0.0-0.5 K/CMM] 0.3 K/CMM (06/29/17 1:31 PM) PT [12.0-14.7 seconds] 13.3 seconds (06/29/17 1:31 PM) INR [0.85-1.17] 0.99 (06/29/17 1:31 PM) PTT [22.9-35.8 seconds] 30.7 seconds (06/29/17 1:31 PM) Immunizations No data available for this section Procedures Procedure Date Related Diagnosis Body Site Insertion of IUD Social History Social History Type Response Smoking Status Never smoker; Exposure to Tobacco Smoke None; Cigarette Smoking Last 365 Days No; Reg Smoking Cessation Counseling No Assessment and Plan Extracted from: Title: Stroke H&P Author: Caitlin San NP Date: 06/29/17 Stroke History & Physical Chief Complaint: R arm weakness History of Present Illness:27 yo female with PMH anemia during , current IUD was treated with tPA for R arm plegia and sensory loss on Monday at [employer] and DC[facility] Monday. Per patient she wa s told she had a clot somewhere and was told to take baby aspirin 3 times a day. At discharge sensation was returning and she had improved distal strength but reports she was still unable to lift arm. Patient reports a cough x 5 days with a low grade fever and was prescribed steriods that she never took. She awoke normally this morning, except for a 102 degree fever and julio same cough. She went to work and at 1015, her R arm became plegic and she had sensory loss again. Patient reports possible dysarthria as well. She did not go to [employer] today because she did not feel she was treated well during her recent hospitalization. She is not a tPA candidate due to administration of drug 4 days ago. Patient is functionally independent and lives with her 3 children at her mothers house. Review of Systems: GEN: fever, fatigue EYES: no blurred vision, double vision CARDIO: no chest pain, palpitations PULM: +cough GI: no nausea, vomiting, diarrhea, no abd pain : no frequency, dysuria, hematuria NEURO: see HPI SKIN: no rash or lesion MSK: no pain, swelling, redness, heat in muscles, no limited ROM, weakness, or atrophy, no cramps LYMPH/IMMUNO: No lymph node enlargement/tenderness, no heat/cold intolerance Past Medical History: as above Past Surgical History: IUD Family Medical History: noncontributory Social History: Denies alcohol and illicit drug use. Denies smoking. Medications:81 mg asa Allergies: straterra Physical Exam: Vitals Tmp(F) Pulse BP RR SpO2 FIO2 06/29 14:30 ---- 99 126/80 26 96 --- 06/29 14:00 ---- 103 103/64 20 95 --- 06/29 13:47 ---- 109 127/69 22 95 --- 06/29 13:37 ---- 100 116/69 21 97 --- 06/29 13:32 ---- 22 118/71 22 97 --- 24 Hr Tmax: 97.8F (36.56c) at 06/29 13:00 Vital Signs are the last 5 in the past 48 hours. GENERAL: Awake, alert in NAD HEENT: - Normocephalic and atraumatic, dry mm, no LN++, no Thyromegally LUNGS - Regular, unlabored CV - RRR, equal pulses bilaterally. ABDOMEN - Soft, nontender, nondistended NEURO: Mental Status: AA&Ox3 Language: speech is clear dysarthric. Naming, repitition, fluency, and comprehension intact. Cranial Nerves: PERRL 4 mm/brisk. EOMI, visual joseph full, no facial asymmetry , facial sensation intact, hearing intact, tongue/uvula/soft palate midline, normal sternocleidomastoid and trapezius muscl e strength. No evidence of tongue atrophy or fibrillations Motor: RUE 0/5, otherwise normal Tone: is normal and bulk is normal Sensation-diminished to pain on RUE Coordination: JOIE on RUE, otherwise normal Gait- deferred MRS 0-Completely asymptomatic and back to baseline post-stroke NIH Stroke Scale (NIHSS) 1a. Level of Consciousness; 0-alert 1-drowsy 2-stupor 3-coma 1b. LOC Questions month and age; 0-both 1-one 2-neither 1c. 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 Best Gaze; 0-nl 1-partial 2-forced gaze 3. Visual Joseph; 0-No visual loss. 1-Partial hemianopia 2-Complete 3-Bilateral 4. Facial Palsy; 0-none 1-minor 2-partial 3-complete 4 5. Motor - R arm; 0-No drift 1-Drift 2-Some antigravity 3-No antigravity 4- No movement 6. Motor - R leg; 0-No drift 1-Drift 2-Some antigravity 3-No antigravity 4- No movement 7. Motor - L arm; 0-No drift 1-Drift 2-Some antigravity 3-No antigravity 4- No movement 8. Motor - L leg; 0-No drift 1-Drift 2-Some antigravity 3-No antigravity 4- No movement 9. Limb Ataxia; 0 absent 1 - 1limb 2 - 2 limbs 1 10. Sensory; 0-nl 1-partial loss 2-dense loss 11. Best Language; 0-nl 1-mild/mod 2-severe 3-mute 12. Dysarthria; 0-nl 1-mild/mod 2-severe x-untestable 13. Extinction and Inattention (formerly Neglect); 0-none 1-partial 2- complete TOTAL SCORE 5 Labs (Last four charted values) WBC 9.9 (JUN 29) Hgb 15.6 (JUN 29) Hct 47.1 (JUN 29) Plt 286 (JUN 29) Na 139 (JUN 29) K 4.1 (JUN 29) CO2 26 (JUN 29) Cl 104 (JUN 29) Cr 0.91 (JUN 29) BUN 10 (JUN 29) Glucose Random 95 (JUN 29) Ca 9.1 (JUN 29) PT 13.3 (JUN 29) INR 0.99 (JUN 29) PTT 30.7 (JUN 29) Troponin <0.02 (JUN 29) CK MB <0.5 (JUN 29) Total CK 46 (JUN 29) EKG: SR Imaging: CTH: By my read, no acute or hemorrhagic infarct. CTA H&N: By my read, No intra/extracranial flow limiting stenosis or branch occlusions. Extracranial vessels without obvious luminal injury. CTP: By my read, no mismatch detected. Assessment: 27 yo female no vascular risk factors recently treated with tPA for RUE weakness and sensory loss pw with same symptoms. Plan: Functional weakness/sensory loss vs small subcortical stroke Acuity: Acute . Continue Evaluation: Pending neuroimaging evaluations, lab tests, monitor telemetry events, follow-up neuro imaging reports. Treatments: -Admit to: COU -Continue Aspirin/ start Statin -Blood pressure control, goal of SYS <180 -MRI/A1C/Lipid panel. -Obtain TTE if MRI is positive -Hyperglycemia management per SSI to maintain glucose 140-180mg/dL. -PT/OT/ST therapies and recommendations when able -Case discussed with DR. 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
[2018-10-03 09:32] LABS: Urine Bacteria <20 /HPF (<20); Urine Culture Reflex Order NOT NEEDED; Urine Mucus 1+ /HPF (NONE SEEN)
[2018-10-03 09:32] LABS: Urine Blood TRACE (NEG); Urine Glucose NEGATIVE (NEG); Urine Protein 1+ (NEG); Urine Specific Gravity 1.025 (1.005-1.030)
[2018-10-03] MEDS ORDERED: ONDANSETRON 4 MG (ODT) TAB ONE (09:41)
--- NOTE | 2018-10-03 10:17 | RAD REPORT ---
EXAM DESCRIPTION: RAD - Chest Pa And Lat (2 Views) - 10/03/2018 9:14 am CLINICAL HISTORY: COUGH Chest pain. COMPARISON: Chest Single View dated 06/25/2017 FINDINGS: The lungs are clear. The heart is normal in size. No displaced fractures. IMPRESSION: No acute or concerning finding suspected.
--- NOTE | 2018-10-03 10:38 | ER ---
Nurse's Notes [facility] Name: Laisha Hayes Age: 28 yrs Sex: Female : 1990 Arrival Date: 10/03/2018 Time: 08:21 Bed 16 Private MD: Arminda Irene K Diagnosis: Acute upper respiratory infection, unspecified Presentation: 10/03 08:33 Presenting complaint: Patient states: Fever, cough, body aches, headache and vomiting ph since Monday, TMAX 104 this am, pt reports that vomiting occurs after coughing spells, denies sore throat or diarrhea. Transition of care: patient was not received from another setting of care. Onset of symptoms was October 03, 2018. Risk Assessment: Do you want to hurt yourself or someone else? Patient reports no desire to harm self or others. Initial Sepsis Screen: Does the patient meet any 2 criteria? No. Patient's initial sepsis screen is negative. Does the patient have a suspected source of infection? No. Patient's initial sepsis screen is negative. Care prior to arrival: Medication(s) given: Motrin, at 0630 Tylenol. 08:33 Method Of Arrival: Ambulatory ph 08:33 Acuity: MATTHEW 4 ph [facility] [employer]: 08:34 LMP 09/19/2017 ph Historical: - Allergies: 08:37 tridera; ph 08:37 Strattera; ph - Home Meds: 08:37 Topamax Oral [Active]; ph - PMHx: 08:37 Migraines; ph - PSHx: 08:37 foot; ph - Immunization history:: Adult Immunizations unknown. - Social history:: Smoking status: Patient/guardian denies using tobacco. - Ebola Screening: : No symptoms or risks identified at this time. Screenin:38 Abuse screen: Denies threats or abuse. Denies injuries from another. Nutritional ph screening: No deficits noted. Tuberculosis screening: No symptoms or risk factors identified. Fall Risk None identified. Assessment: 09:10 General: Appears in no apparent distress. comfortable, well groomed, Behavior is calm, ss cooperative, appropriate for age, Reports fever for > 3 days. Pain: Complains of pain in "all over", head and back. Neuro: Level of Consciousness is awake, alert, obeys commands, Oriented to person, place, time, situation. Cardiovascular: Capillary refill < 3 seconds in bilateral fingers Patient's skin is warm and dry. Respiratory: Reports cough that is productive, pain with cough Airway is patent Respiratory effort is even, unlabored, Respiratory pattern is regular, symmetrical. GI: Abdomen is round non-distended, Bowel sounds present X 4 quads. Abd is soft and non tender X 4 quads. Reports vomiting, Patient currently denies abdominal pain, diarrhea, nausea. : No signs and/or symptoms were reported regarding the genitourinary system. Derm: Skin is intact, is healthy with good turgor, Skin is pink, warm \\T\\ dry. 10:30 Reassessment: Patient appears in no apparent distress at this time. Patient and/or ph family updated on plan of care and expected duration. Pain level reassessed. Patient is alert, oriented x 3, equal unlabored respirations, skin warm/dry/pink. Pt resting quietly, awaiting CXR results. 11:28 Reassessment: Patient appears in no apparent distress at this time. Patient and/or ph family updated on plan of care and expected duration. Pain level reassessed. Patient is alert, oriented x 3, equal unlabored respirations, skin warm/dry/pink. Pt reports that nausea has improved, d/c home. Vital Signs: 08:34 BP 123 / 81; Pulse 110; Resp 18; Temp 99.9; Pulse Ox 98% on R/A; Weight 86.18 kg; ph Height 5 ft. 5 in. (165.10 cm); Pain 8/10; 09:40 BP 114 / 67 RA Supine; Pulse 95; Resp 18; Pulse Ox 98% on R/A; ph 09:40 BP 113 / 74 RA Sitting; Pulse 100; ph 09:40 BP 104 / 78 Standing; Pulse 118; ph 09:40 ph 10:45 BP 114 / 71; Pulse 102; Resp 18; Temp 99.1; Pulse Ox 98% on R/A; ph 08:34 Body Mass Index 31.62 (86.18 kg, 165.10 cm) ph 09:40 Pt reports " a little dizziness" upon standing ph ED Course: 08:21 Patient arrived in ED. sb2 08:22 Arminda Irene MD is Private Physician. sb2 08:26 Jacob Chilel PA is PHCP. cp 08:26 Kenrick Umana MD is Attending Physician. cp 08:33 Amy Bailey, RN is Primary Nurse. ph 08:34 Triage completed. ph 08:35 Arm band placed on. ph 08:38 Patient has correct armband on for positive identification. Bed in low position. Call ph light in reach. Side rails up X 1. Pulse ox on. NIBP on. Warm blanket given. 09:04 Patient moved to radiology via wheelchair. jb2 09:12 X-ray completed. Patient tolerated procedure well. Patient moved back from radiology. jb2 09:14 XRAY Chest Pa And Lat (2 Views) In Process Unspecified. EDMS 11:29 No provider procedures requiring assistance completed. Patient did not have IV access ph during this emergency room visit. Administered Medications: 09:44 Drug: Zofran 4 mg Route: PO; ph 10:17 Follow up: Response: No adverse reaction; Nausea is decreased ph 11:10 Drug: Tussionex Pennkinetic ER 5 ml Route: PO; ph 11:27 Follow up: Response: No adverse reaction; Medication administered at discharge. ph Outcome: 10:37 Discharge ordered by MD. cp 11:30 Discharged to home ambulatory. ph 11:30 Condition: good 11:30 Discharge instructions given to patient, Instructed on discharge instructions, follow up and referral plans. medication usage, Demonstrated understanding of instructions, follow-up care, medications, Prescriptions given X 3. 11:31 Patient left the ED. ph Signatures: Dispatcher [employer] EDVT Edwin Borrero jb2 Nilam Prado RN RN Amy Bailey, RN RN ph Jacob Chilel PA PA cp Linette Roy sb2
--- NOTE | 2018-10-03 10:38 | EDPHYS ---
Physician Documentation [facility] Name: Laisha Hayes Age: 28 yrs Sex: Female : 1990 Arrival Date: 10/03/2018 Time: 08:21 Bed 16 Private MD: Arminda Irene K ED Physician Kenrick Umana HPI: 10/03 08:45 This 28 yrs old Female presents to ER via Ambulatory with complaints of cp Fever, Nausea/Vomiting, Headache. 08:45 The patient reports fever, that was measured at 104 degrees Fahrenheit. cp 08:45 Onset: The symptoms/episode began/occurred 3 day(s) ago. cp 08:45 Associated signs and symptoms: Pertinent positives: cough, headache, nausea, sore cp throat, vomiting, Pertinent negatives: abdominal pain, diarrhea, skin rash. Patient reports she is currently taking Amoxicillin for sore throat. [employer]: 08:34 LMP 09/19/2017 ph Historical: - Allergies: 08:37 tridera; ph 08:37 Strattera; ph - Home Meds: 08:37 Topamax Oral [Active]; ph - PMHx: 08:37 Migraines; ph - PSHx: 08:37 foot; ph - Immunization history:: Adult Immunizations unknown. - Social history:: Smoking status: Patient/guardian denies using tobacco. - Ebola Screening: : No symptoms or risks identified at this time. ROS: 09:00 Constitutional: Negative for fever, poor PO intake. cp 09:00 Eyes: Negative for injury, pain, redness, and discharge. cp 09:00 ENT: Positive for sore throat, Negative for drainage from ear(s), ear pain, difficulty swallowing, difficulty handling secretions. 09:00 Neck: Positive for tenderness. 09:00 Cardiovascular: Negative for chest pain. 09:00 Respiratory: Positive for cough, Negative for shortness of breath, wheezing. 09:00 Abdomen/GI: Positive for nausea, vomiting, Negative for abdominal pain, diarrhea, constipation. 09:00 Back: Negative for pain at rest, pain with movement. 09:00 : Negative for urinary symptoms. 09:00 Skin: Negative for cellulitis, rash. 09:00 Neuro: Positive for headache, Negative for altered mental status, weakness. 09:00 All other systems are negative. Exam: 09:05 Constitutional: The patient appears in no acute distress, alert, awake, non-toxic, well cp developed, well nourished. 09:05 Head/Face: Normocephalic, atraumatic. cp 09:05 Eyes: Pupils equal round and reactive to light, extra-ocular motions intact. Lids and lashes normal. Conjunctiva and sclera are non-icteric and not injected. Cornea within normal limits. Periorbital areas with no swelling, redness, or edema. 09:05 ENT: External ear(s): are unremarkable, Ear canal(s): are normal, clear, TM's: bulging, is not appreciated, bilaterally, dullness, bilaterally, erythema, is not appreciated, bilaterally, Nose: is normal, Mouth: Lips: moist, Oral mucosa: moist, Posterior pharynx: Airway: no evidence of obstruction, patent, Tonsils: no enlargement, no exudate, Uvula: midline, swelling, is not appreciated, erythema, that is mild. 09:05 Neck: ROM/movement: limited range of motion, is not appreciated, Meningeal signs: Kernig's sign is negative, Brudzinski's sign is negative, nuchal rigidity, is not appreciated, Lymph nodes: no appreciated lymphadenopathy. 09:05 Chest/axilla: Inspection: normal, Palpation: is normal, no crepitus, no tenderness. 09:05 Cardiovascular: Rate: tachycardic, Rhythm: regular, Heart sounds: murmur, not appreciated. 09:05 Respiratory: the patient does not display signs of respiratory distress, Respirations: normal, no use of accessory muscles, no retractions, no splinting, no tachypnea, labored breathing, is not present, Breath sounds: bronchial sounds, that are mild, are heard diffusely, decreased breath sounds, are not appreciated, stridor, is not appreciated, + upper airway congestion. wheezing: is not appreciated. 09:05 Abdomen/GI: Inspection: abdomen appears normal, Bowel sounds: active, all quadrants, Palpation: abdomen is soft and non-tender, in all quadrants, involuntary guarding, is not appreciated. 09:05 Back: pain, is absent, ROM is normal. 09:05 Skin: cellulitis, is not appreciated, no rash present. 09:05 Neuro: Orientation: to person, place \\T\\ time. Mentation: is normal, Cerebellar function: is grossly normal, Motor: moves all fours, strength is normal, Sensation: is normal. Vital Signs: 08:34 BP 123 / 81; Pulse 110; Resp 18; Temp 99.9; Pulse Ox 98% on R/A; Weight 86.18 kg; ph Height 5 ft. 5 in. (165.10 cm); Pain 8/10; 09:40 BP 114 / 67 RA Supine; Pulse 95; Resp 18; Pulse Ox 98% on R/A; ph 09:40 BP 113 / 74 RA Sitting; Pulse 100; ph 09:40 BP 104 / 78 Standing; Pulse 118; ph 09:40 ph 10:45 BP 114 / 71; Pulse 102; Resp 18; Temp 99.1; Pulse Ox 98% on R/A; ph 08:34 Body Mass Index 31.62 (86.18 kg, 165.10 cm) ph 09:40 Pt reports " a little dizziness" upon standing ph MDM: 08:26 Patient medically screened. cp 09:45 Differential diagnosis: viral Infection, bacterial infection, bronchitis, pneumonia cp UTI, gastroenteritis, meningitis. 10:35 Data reviewed: vital signs, nurses notes, lab test result(s), radiologic studies, plain cp films. 10:35 Test interpretation: by ED physician or midlevel provider: plain radiologic studies. cp Counseling: I had a detailed discussion with the patient and/or guardian regarding: the historical points, exam findings, and any diagnostic results supporting the discharge/admit diagnosis, lab results, radiology results, to return to the emergency department if symptoms worsen or persist or if there are any questions or concerns that arise at home. Response to treatment: the patient's symptoms have mildly improved after treatment, and as a result, I will discharge patient. 10/03 08:37 Order name: Influenza Screen (a \\T\\ B); Complete Time: 09:51 cp 10/03 09:10 Order name: Urine Microscopic Only; Complete Time: 09:48 ss 10/03 09:49 Interpretation: Normal except: URBC 5-10. 10/03 08:37 Order name: XRAY Chest Pa And Lat (2 Views); Complete Time: 10:31 cp 10/03 10:31 Interpretation: Report reviewed. 10/03 09:19 Order name: Urine Dipstick--Ancillary (enter results); Complete Time: 09:48 em1 10/03 09:49 Interpretation: Normal except: UBLD TRACE; UPROT 1+. cp 10/03 09:19 Order name: Urine --Ancillary (enter results); Complete Time: 09:48 em1 10/03 08:37 Order name: Orthostatics; Complete Time: 09:43 cp 10/03 08:37 Order name: Urine Dipstick-Ancillary (obtain specimen); Complete Time: 09:10 cp 10/03 08:37 Order name: Urine Test (obtain specimen); Complete Time: 09:10 cp 10/03 09:51 Order name: PO challenge; Complete Time: 10:16 cp Administered Medications: 09:44 Drug: Zofran 4 mg Route: PO; ph 10:17 Follow up: Response: No adverse reaction; Nausea is decreased ph 11:10 Drug: Tussionex Pennkinetic ER 5 ml Route: PO; ph 11:27 Follow up: Response: No adverse reaction; Medication administered at discharge. ph Disposition: 10/03/18 10:37 Discharged to Home. Impression: Acute upper respiratory infection, unspecified. - Condition is Stable. - Discharge Instructions: Upper Respiratory Infection, Adult. - Prescriptions for Medrol (Gavin) 4 mg Oral Tablets, Dose Pack - take 1 tablet by ORAL route as directed - follow package instructions; 1 packet. Albuterol Sulfate 90 mcg/actuation - inhale 1-2 puff by INHALATION route every 4-6 hours; 1 Inhaler. Guaifenesin AC 10- 100 mg/5 mL Oral Liquid - take 10 milliliters by ORAL route every 4 hours As needed; 180 milliliter. - Work release form, Medication Reconciliation Form, Thank You Letter, Antibiotic Education, Prescription Opioid Use form. - Follow up: Private Physician; When: 2 - 3 days; Reason: Recheck today's complaints. - Problem is new. - Symptoms have improved. Addendum: 10/05/2018 07:12 Co-signature as Attending Physician, Kenrick Umana MD. r n Signatures: Dispatcher [employer] EDKenrick Burns MD MD rn Hall, Patricia, RN RN ph Ranjana, Jacob, JUANCHO DAWKINS cp Corrections: (The following items were deleted from the chart) 10/03 11:31 10:37 10/03/2018 10:37 Discharged to Home. Impression: Acute upper respiratory ph infection, unspecified. Condition is Stable. Forms are Medication Reconciliation Form, Thank You Letter, Antibiotic Education, Prescription Opioid Use. Follow up: Private Physician; When: 2 - 3 days; Reason: Recheck today's complaints. Problem is new. Symptoms have improved. cp
[2018-10-03] MEDS ORDERED: HYDROCODONE/CHLORPHEN 5 ML/OSYR ONE (11:14)
== END 2018-10-03 11:31 | disposition home or self-care (01) ==
LOC: ER 08:17
DX: J06.9 Acute upper respiratory infection, unspecified (principal)
CPT/HCPCS: 71046; 81003; 81015; 81025; 87804; 99284

== ENCOUNTER 2018-10-16 08:18 | Emergency (ER) | payer BC ==
--- OUTSIDE RECORDS SUMMARY | 2018-10-16 08:21 | XMS REPORT | Clinical Summary ---
:1990 [facility] Address [address] [place] [address] Care Team Providers Name Role Phone Arminda Irene MD Primary Care Provider Allergies Active Allergy Reactions Severity Noted Date Comments Cooper 06/26/2017 Atomoxetine 06/26/2017 Sunscreen 06/26/2017 Medications Medication Sig Dispensed Refills Start Date End Date Status fexofenadine (RAMIRO) Take 180 mg by 0 Active 180 [...] VACCINE 04/18/2018 06/26/2017 Results Not on fileafter 10/15/2017 Insurance Payer Benefit Plan / Group Subscriber ID Type Phone Address BCBS BCBS CHOICE PPO/[employer]ER[employer] EMPL PPO xxxxxxxxxxxx PPO Advance Directives Patient has advance care planning documents, and code status on file. For more information, please contact:[address] [address] Code Status Date Activated Date Inactivated Comments Full Code 06/26/2017 9:26 PM 06/28/2017 1:38 AM Code Status decision reached by: Patient
--- OUTSIDE RECORDS SUMMARY | 2018-10-16 08:22 | XMS REPORT | Continuity of Care Document ---
:1990 Author Organization Interface Problems Problem Status Onset Classification Date Comments Source Date Reported Discharge 07/25/20 07/28/2017 [facility] Diagnosis: 17 Medical Contusion of Center unspecified front wall of thorax, initial encounter CORRECTION Active 07/25/20 [place] [address] [facility] RT ARM NUMBNESS, Active 06/29/20 [facility] MUSCLE RT ARM [address] [place] [address] WEAKNESS [place] RIGHT ARM NUMB, Active 06/29/20 [facility] N/V/CANDELARIO [address] [place] [address] Center Acute Resolved Problem 07/28/2017 [facility] cerebrovascular Medical accident (<[facility] ID="[id number]"> Confirmed</[facility]>) Migraines Active Problem 07/28/2017 [facility] PARESTHESIA OF Active [facility] SKIN [facility] Medications Medication Details Route Status Patient Ordering Order Source Instructions Provider Date tramadol 50 mg 50 mg=1 tab, PO, Active [facility] oral tablet BID, X 15 day, # 2017 Medical 30 tab, 0 Center Refill(s) Tylenol with 1 tab, PO, Q6H, Active [facility] Codeine #3 oral PRN Pain, X 7 2017 Medical tablet day, # 28 tab, 0 Center Refill(s) ibuprofen 600 mg, 1 tab, Inactive 07/25[facility] Route: PO, Drug 2017 Medical form: TAB, ONCE, Center Dosing Weight 77.273, kg, Priority: STAT, Start date: 07/25/17 12:33:00 BODY LINE FINISHER, Stop date: 07/25/17 12:33:00 CSTNotes: (Same as: Motrin) "Do Not Crush" Take with food. acetaminophen-c 1 tab, Route: Inactive 07/25[facility] odeine #3 PO, Drug Form: 2017 Medical TAB, Dosing Center Weight 77.273, kg, ONCE, STAT, Start date: 07/25/17 12:33:00 BODY LINE FINISHER, Stop date: 07/25/17 12:33:00 CSTNotes: Do not exceed 4gm/day of acetaminophen. (Same as: Tylenol with Codeine # 3) Visipaque 100 mL, Route: Inactive Samir 320mg/ml IVP, Drug Form: 2017 Medical SOLN, Dosing Center Weight 77.273, kg, ONCALL, STAT, Start date: 07/25/17 11:04:00 BODY LINE FINISHER, Duration: 1 doses or times, Dose=2.2ml/kg, Max [id number]=[id number] -- "To be infused by Radiology Staff ONLY" Saline Flush 10 mL, Route: Inactive Samir 0.9% IVP, Drug Form: 2017 Medical INJ, Dosing Center Weight 77.273, kg, PRN, PRN Line Flush, Start date: 07/25/17 10:04:00 BODY LINE FINISHER, Duration: 30 day, Stop date: 08/24/17 10:03:00 CSTNotes: Same as: BD Posiflush Sterile ondansetron 4 mg, 2 mL, Inactive Samir Route: IVP, Drug 2016 Medical form: INJ, ONCE, Center Dosing Weight 77.273, kg, Priority: STAT, Start date: 07/25/17 10:02:00 BODY LINE FINISHER, Stop date: 07/25/17 10:02:00 CSTNotes: (Same as: Zofran) MEDICATION WASTE Product Size: 4 mg Product Wasted: ___ mg morphine 4 mg, 1 mL, Inactive [facility] Sulfate Route: IVP, Drug 2016 Medical form: SOLN, Center ONCE, Dosing Weight 77.273, kg, Priority: STAT, Start date: 07/25/17 10:02:00 BODY LINE FINISHER, Stop date: 07/25/17 10:02:00 CSTNotes: (Same as:MORPhine Sulfate) atorvastatin 80 80 mg=1 tab, PO, Active [place] mg oral tablet Bedtime, # 60 2016 Medical tab, 2 Center Refill(s), Pharmacy: [facility]/pharmacy #[id number] magnesium oxide 400 mg=1 tab, Active [place] 400 mg oral PO, Daily, X 7 2016 Medical tablet day, # 7 tab, 0 Center Refill(s), Pharmacy: [facility]/pharmacy #[id number] Versed 0.5 mg, Route: Inactive Samir [...] as: Zofran) Phenergan 6.25 mg, 0.5 Inactive [place] tab, Route: PO, 2016 Medical Drug form: [...] HFA] Phenergan 12.5 mg, 0.5 mL, Inactive [place] Route: IVPB, 2016 Medical Drug form: INJ, Center ONCE, Dosing Weight 72.727, kg, PRN Nausea & Vomiting, Priority: NOW, Start date: 06/29/17 17:31:00 CDTNotes: Do not give IV push. (Same as: Phenergan) heparin 5,000 unit, 1 No Longer [place] mL, Route: Active 2016 Medical SUB-Q, Drug Center form: INJ, Q8H, Dosing Weight 72.727, kg, (For patients weighing Notes: porcine heparin Ativan 1 mg, 0.5 mL, Inactive [place] Route: IVP, Drug 2016 Medical form: INJ, ONCE, Center Dosing Weight 72.727, kg, PRN Anxiety, Start date: 06/29/17 15:40:00 CDTNotes: (Same as: Ativan) Ondansetron 4 mg, 2 mL, Inactive [facility] Route: IVP, Drug 2016 Medical form: INJ, ONCE, Center Dosing Weight 72.727, kg, Priority: STAT, Start date: 06/29/17 14:59:00 CDT, Stop date: 06/29/17 14:59:00 CDTNotes: (Same as: Zofran) MEDICATION WASTE Product Size: 4 mg Product Wasted: ___ mg Saline Flush 10 ml, Route: No Longer [place] 0.9% MISC, Drug Form: Active 2016 Medical INJ, Dosing Center Weight 72.727, kg, PRN, PRN Line Flush, Start date: 06/29/17 14:31:00 CDT, Duration: 30 day, Stop date: 07/29/17 13:30:00 CSTNotes: (Same as: BD Posiflush) Acetaminophen 650 mg, 2 tab, No Longer [place] Route: PO, Drug Active 2016 Medical form: TAB, Q4H, Center Dosing Weight 72.727, kg, PRN Pain 1-3/Temp > 99.5 F, Start date: 06/29/17 14:31:00 CDT, Duration: 30 day, Stop date: 07/29/17 14:30:00 CSTNotes: Do not exceed 4 gm/day. (Same as: Tylenol) Iohexol 100 mL, Route: Inactive [facility] IVP, Drug Form: 2016 Medical SOLN, Dosing Center Weight 72.727, kg, ONCALL, STAT, Start date: 06/29/17 13:37:00 CDT, Duration: 1 doses or times, Dose=2.2ml/kg, Max cptf=[id number] -- "To be infused by Radiology Staff ONLY" Saline Flush 10 mL, Route: No Longer [place] 0.9% IVP, Drug Form: Active 2016 Medical INJ, Dosing Center Weight 72.727, kg, PRN, PRN Line Flush, Start date: 06/29/17 13:19:00 CDT, Duration: 30 day, Stop date: 07/29/17 12:18:00 CSTNotes: (Same as: BD Posiflush) Allergies, Adverse Reactions, Alerts Substance Category Reaction Severity Reaction Status Date Comments Source type Reported Strattera Assertion Drug Active [facility] Immunizations Immunization Date Given Site Status Last Updated Comments Source Results Order Name Results Value Reference Date Interpretation Comments Source Range CHEM PANEL eGFR 110 07/25 Result Comment: The eGFR is calculated using the CKD-EPI formula. In most young, healthy individuals the eGFR will be >90 mL/ min/1.73m2. The eGFR declines with age. An eGFR of 60-89 may be normal in [facility] mL/min/1.7 some populations, particularly the elderly, for whom the CKD-EPI formula has not been extensively validated. Use of the eGFR is not recommended in the following populations: [address] Individuals with unstable creatinine concentrations, including [...] Lvl 105 meq/L 95 - 109 07/25 [facility] 2017 [facility] Center CHEM PANEL AGAP 11.7 meq/L 10.0 - 07/25 [facility] 20.0 [facility] CHEM PANEL Creatinine 0.75 mg/dL 0.50 - 07/25 [facility] Lvl 1.40 [facility] CHEM PANEL Calcium Lvl 9.1 mg/dL 8.5 - 10.5 07/25 [facility] CHEM PANEL CO2 26 meq/L 24 - 32 07/25 [facility] CHEM PANEL Potassium Lvl 3.7 meq/L 3.5 - 5.1 07/25 [facility] CHEM PANEL Sodium Lvl 139 meq/L 135 - 145 07/25 [facility] CHEM PANEL Glucose Lvl 83 mg/dL 70 - 99 07/25 [facility] CHEM PANEL BUN 11 mg/dL 7 - 22 07/25 [facility]2016 [facility] URINE CHEM U Preg Negative Negative 07/25 [facility] (07/25/17 12:20 PM) Center IMMUNOLOGY CDC HIV 4th Negative Negative 07/25 [facility] *NA* Center (07/25/17 12:00 PM) Chest/Abdom Chest/Abdomen EXAM: CT CHEST WITH CONTRAST 07/25 - [facility] en/Pelvis w /Pelvis w IV /2016 - [facility] IV contrast contrast CT EXAM: CT ABDOMEN AND PELVIS WITH CONTRAST This report was dictated by a Labor Relations Teacher/Fellow. I have personally reviewed the images as Center CT well as the Resident's interpretation and agree with the findings. Read by: Yesenia Marshall Resident: Yesenia Marshall Dictated Date/time: 07/25/17 11:04 DATE: 07/25/2017 10:04 AM BODY LINE FINISHER Electronically Signed by: Feliciano Mcdaniels MD 07/25/17 12:00 FINAL REPORT INDICATION: - CORRECTION, midline cervical/thoracic tenderness, concern for sternal fracture, [...] noted. Brain wo Brain wo 07/25 - [facility] contrast CT contrast CT /2017 - [facility] EXAMINATION: CT head without contrast Read [...] CT CERVICAL SPINE WITHOUT CONTRAST 07/25 - [facility] cervical wo cervical wo /2016 - Medical contrast CT contrast CT This report was dictated by a Labor Relations Teacher/Fellow. I have personally reviewed the images as Center well as the Resident's interpretation and agree with the findings. DATE: 07/25/2017 10:04 AM BODY LINE FINISHER Read by: Yesenia Marshall Resident: Yesenia Marshall Dictated Date/time: 07/25/17 10:43 Electronically Signed by: Feliciano Mcdaniels MD 07/25/17 11:16 FINAL REPORT INDICATION: - CORRECTION, midline cervical/thoracic tenderness, concern for sternal fracture, [...] THE ENTIRE SPINE WITHOUT AND WITH CONTRAST [facility] w/wo w/wo contrast /2017 - Medical contrast [...] LIPIDS CHD Risk 5.34 3.90 - 06/29 [facility] 5.80 [facility] LIPIDS HDL 41 mg/dL >=61 mg/dL 06/29 [facility] LIPIDS Chol 219 mg/dL <=199 06/29 [facility] mg/dL [facility] LIPIDS Trig 166 mg/dL <=149 06/29 [facility] mg/dL [facility] LIPIDS LDL 145 mg/dL <=99 mg/dL 06/29 [facility] (Calculated) [facility] LIPIDS VLDL 33 06/29 [facility] SPECIAL Hgb A1C 5.1 % <=5.6 % 06/29 [facility] CHEMISTRY [facility] DRUG SCREEN U Phencyc Scr Negative Negative 06/29 [facility] *NA* [place] (06/29/17 2:45 PM) DRUG SCREEN U Cannab [facility]r Negative Negative [facility] [place] (06/29/17 2:45 PM) DRUG SCREEN UDS Note See Note 06/29 [facility] (06/29/17 2:45 PM) [place] DRUG SCREEN U Opiate Scr Negative Negative 06/29 [facility] *NA* [place] (06/29/17 2:45 PM) DRUG SCREEN U Cocaine Scr Negative Negative 06/29 [facility] *NA* [place] (06/29/17 2:45 PM) DRUG SCREEN U Amph Scr Negative Negative 06/29 [facility] [place] (06/29/17 2:45 PM) DRUG SCREEN U Xochitl Scr Positive Negative 06/29 [facility] [place] (06/29/17 2:45 PM) DRUG SCREEN U Benzodia Negative Negative 06/29 [facility] *NA* [place] (06/29/17 2:45 PM) URINE AND UA 2.0 EU/dL 0.1 - 1.0 06/29 [facility] Urobilinogen [facility] URINE AND UA Nitrite Negative Negative 06/29 [facility] STOOL [facility] (06/29/17 2:45 PM) [place] URINE AND UA Blood Trace Negative 06/29 [facility] Medical ABN* [place] (06/29/17 2:45 PM) URINE AND UA Leuk Est Negative Negative 06/29 [facility] (06/29/17 2:45 PM) Center URINE AND UA pH 6.5 5.0 - 8.0 06/29 [facility] STOOL [facility] URINE AND UA Bili Negative Negative 06/29 [facility] STOOL Medical *NA* [place] (06/29/17 2:45 PM) URINE AND UA Glucose Negative Negative 06/29 [facility] (06/29/17 2:45 PM) [place] URINE AND UA Protein Negative Negative 06/29 [facility] (06/29/17 2:45 PM) [place] URINE AND UA Color Yellow Yellow 06/29 [facility] Medical *NA* [place] (06/29/17 2:45 PM) URINE AND UA Turbidity Clear Clear 06/29 [facility] (06/29/17 2:45 PM) [place] URINE AND UA Ketones Negative Negative 06/29 [facility] *NA* [place] (06/29/17 2:45 PM) URINE AND UA Spec Grav 1.140 <=1.030 06/29 [facility] [address] [place] [address] URINE AND UA Sq Epi Few /LPF Few /LPF 06/29 [facility] URINE AND UA RBC 0-2 /HPF 0 - 2 06/29 [facility] URINE AND UA WBC 0-2 /HPF None Seen 06/29 [facility] STOOL /[facility] URINE AND UA Bacteria Occasional None Seen 06/29 [facility] STOOL /HPF /HPF [facility] IMMUNOLOGY CDC HIV 4th Negative Negative 06/29 [facility] *NA* [place] (06/29/17 2:33 PM) CARDIAC Total CK 46 unit/L 12 - 191 06/29 [facility] ENZYMES [facility] CARDIAC CK MB null 0.5 - 3.6 06/29 [facility] ENZYMES [facility] CARDIAC Troponin-I null 0.00 - 06/29 [facility] ENZYMES 0.40 [facility] CARDIAC CK-MB INDEX null 0.0 - 2.5 06/29 [facility] CHEM PANEL eGFR 87 06/29 Result Comment: The eGFR is calculated using the CKD-EPI formula. In most young, healthy individuals the eGFR will be >90 mL/ min/1.73m2. The eGFR declines with age. An eGFR of 60-89 may be normal in [facility] mL/min/1.7 some populations, particularly the elderly, for whom the CKD-EPI formula has not been extensively validated. Use of the eGFR is not recommended in the following populations: [address] Individuals with unstable creatinine concentrations, including [...] Lvl 139 meq/L 135 - 145 06/29 [facility] CHEM PANEL CO2 26 meq/L 24 - 32 06/29 2016 [facility] CHEM PANEL Calcium Lvl 9.1 mg/dL 8.5 - 10.5 06/29 2016 [facility] CHEM PANEL Chloride Lvl 104 meq/L 95 - 109 06/[address] CHEM PANEL Potassium Lvl 4.1 meq/L 3.5 - 5.1 06/[address] CHEM PANEL Creatinine 0.91 mg/dL 0.50 - 06/29 [facility] Lvl 1.40 [facility] CHEM PANEL AGAP 13.1 meq/L 10.0 - 06/29 [place] 20.0 [facility] CHEM PANEL Glucose Lvl 95 mg/dL 70 - 99 06/[address] [place] [address] CHEM PANEL BUN 10 mg/dL 7 - 22 06/[address] [place] [address] HEMATOLOGY INR 0.99 0.85 - 06/29 [place] 1.17 [facility] HEMATOLOGY PT 13.3 s 12.0 - 06/29 [place] 14.7 [facility] HEMATOLOGY PTT 30.7 s 22.9 - 06/29 [place] 35.8 [facility] HEMATOLOGY Platelet 286 K/CMM 133 - 450 06/29 [facility] HEMATOLOGY MPV 9.5 fL 7.4 - 10.4 06/[address] [place] [address] HEMATOLOGY RDW 13.4 % 11.5 - 06/29 [place] 14.5 [facility] HEMATOLOGY WBC 9.9 K/CMM 3.7 - 10.4 06/[address] [place] [address] HEMATOLOGY RBC 5.43 M/CMM 4.20 - 06/29 [place] 5.40 [facility] HEMATOLOGY MCV 86.9 fL 80.0 - 06/29 [facility] [place] 98.0 [facility] HEMATOLOGY Hgb 15.6 g/dL 12.0 - 06/29 16.0 [facility] HEMATOLOGY MCH 28.8 pg 27.0 - 06/29 31.0 [facility] HEMATOLOGY MCHC 33.2 g/dL 32.0 - 06/29 36.0 [facility] HEMATOLOGY Hct 47.1 % 36.0 - 06/29 [place] 48.0 [facility] HEMATOLOGY Segs-Bands # 6.9 K/CMM 1.5 - 8.1 06/29 [facility] HEMATOLOGY Lymphocytes # 1.6 K/CMM 1.0 - 5.5 06/29 2016 [facility] HEMATOLOGY Eosinophils # 0.3 K/CMM 0.0 - 0.5 06/29 [facility] HEMATOLOGY Monocytes # 1.1 K/CMM 0.0 - 0.8 06/29 [facility] HEMATOLOGY Lymphocytes 16.1 % 20.0 - 06/29 40.0 [facility] HEMATOLOGY Segs 69.7 % 45.0 - 06/29 [place] 75.0 /2016 [facility] HEMATOLOGY Monocytes 11.0 % 2.0 - 12.0 06/29 [facility] HEMATOLOGY Eosinophils 2.7 % 0.0 - 4.0 06/29 [facility] HEMATOLOGY Basophils 0.5 % 0.0 - 1.0 06/[address] Brain wo Brain wo EXAM: MRI BRAIN WITHOUT CONTRAST 06/29 [facility] contrast contrast [facility] DATE: 06/29/2017 4:30 PM CDT Read by: [...] Stroke EXAM: CT BRAIN WITHOUT CONTRAST 06/29 [facility] Stroke wo wo contrast /2016 - Medical contrast CT CT This report was dictated by a Labor Relations Teacher/ Fellow. I have personally reviewed the images [...] hermorrhage. Brain/Neck Brain/Neck EXAM: CTA BRAIN 06/29 [facility] Stroke Stroke /2016 - Medical perfusion perfusion CTA EXAM: CTA NECK This report was dictated by a Labor Relations Teacher/Fellow. I have personally reviewed the images as [...] vascular malformation or aneurysm is identified. [place] is normal. There is no [...] EXAM: XR CHEST 1 VIEW 06/29 - [facility] DX - Medical This report was dictated by a Labor Relations Teacher/Fellow. I have personally reviewed the images as [...] Date Comments Source Respitory Rate 18 07/25/2017 [facility] Systolic (mm Hg) 123 07/25/2017 [facility] Diastolic (mm Hg) 80 07/25/2017 [facility] Temperature Oral (F) 98.9 F 07/25/2017 [facility] Heart Rate 81 07/25/2017 [facility] Systolic (mm Hg) 141 07/25/2017 [facility] Diastolic (mm Hg) 68 07/25/2017 [facility] Respitory Rate 18 07/25/2017 [facility] Heart Rate 80 07/25/2017 [facility] Weight 77.273 07/25/2017 [facility] Height 165.1 cm 07/25/2017 [facility] BMI Calculated 28.35 07/25/2017 [facility] Temperature Oral (F) 98.0 F 07/25/2017 [facility] Systolic (mm Hg) 134 07/25/2017 [facility] Diastolic (mm Hg) 85 07/25/2017 [facility] Heart Rate 70 07/25/2017 [facility] Respitory Rate 20 07/25/2017 [facility] Systolic (mm Hg) 111 07/01/2017 [facility] Diastolic (mm Hg) 70 07/01/2017 [facility] Respitory Rate 18 07/01/2017 [facility] Heart Rate 107 07/01/2017 [facility] Temperature Oral (F) 99.3 F 07/01/2017 [facility] Systolic (mm Hg) 129 06/30/2017 [facility] Diastolic (mm Hg) 63 06/30/2017 [facility] Systolic (mm Hg) 119 06/30/2017 [facility] Diastolic (mm Hg) 62 06/30/2017 [facility] Respitory Rate 18 06/30/2017 [facility] Heart Rate 89 06/30/2017 [facility] Temperature Oral (F) 97.4 F 06/30/2017 [facility] Heart Rate 102 06/30/2017 [facility] Temperature Oral (F) 98.3 F 06/30/2017 [facility] Respitory Rate 18 06/30/2017 [facility] Weight 72.727 06/29/2017 [facility] Height 165.1 cm 06/29/2017 [facility] BMI Calculated 26.68 06/29/2017 [facility] Weight 72.727 06/29/2017 [facility] BMI Calculated 25.88 06/29/2017 [facility] Height 167.64 cm 06/29/2017 [facility] Encounters Location Location Encounter Encounter Reason Attending ADM DC Status Source Details Type Number For Provider Date Date Visit [facility] [id number] [place] 06/29 07/01 [facility] Roberto Choudhary /2016 [facility] [id number] Leeanna 07/25 07/25 [facility] Shanon /2016 [facility] Procedures Procedure Code Date Perfomer Comments Source Insertion of IUD [id number] [facility]
[2018-10-16] MEDS ORDERED: ALBUTEROL 2.5 MG/3 ML NEB SOL ONE (08:54)
[2018-10-16] MEDS ORDERED: IPRATROPIUM BROM 0.5MG/2.5ML ONE (08:54)
[2018-10-16] MEDS ORDERED: BENZONATATE 100 MG CAP PO ONE (08:54)
--- NOTE | 2018-10-16 09:07 | ER ---
Nurse's Notes [facility] Name: Laisha Hayes Age: 28 yrs Sex: Female : 1990 Arrival Date: 10/16/2018 Time: 08:21 Bed 15 Private MD: Arminda Irene K Diagnosis: Otitis media, unspecified, right ear;Acute bronchitis, unspecified Presentation: 10/16 08:24 Presenting complaint: Patient states: cough x 3-4 weeks that is now causing patient to ss vomit which then leads to a headache. Also c/o decreased hearing to R ear. Transition of care: patient was not received from another setting of care. Onset of symptoms was September 18, 2018. Risk Assessment: Do you want to hurt yourself or someone else? Patient reports no desire to harm self or others. Initial Sepsis Screen: Does the patient meet any 2 criteria? No. Patient's initial sepsis screen is negative. Does the patient have a suspected source of infection? No. Patient's initial sepsis screen is negative. Care prior to arrival: None. 08:24 Method Of Arrival: Ambulatory ss 08:24 Acuity: MATTHEW 4 ss PROCUREMENT DIRECTOR: 08:26 LMP 10/02/2018 ss Historical: - Allergies: 08:26 Strattera; ss - Home Meds: 08:26 adipex [Active]; Topamax Oral [Active]; ss - PMHx: 08:26 Anemia; complex paralytic migraines; ss - PSHx: 08:26 R ankle repair; ss - Immunization history:: Adult Immunizations up to date. - Social history:: Smoking status: Patient/guardian denies using tobacco. - Ebola Screening: : Patient denies exposure to infectious person Patient denies travel to an Ebola-affected area in the 21 days before illness onset. Screenin:30 Abuse screen: Denies threats or abuse. Denies injuries from another. Nutritional ca1 screening: No deficits noted. Tuberculosis screening: No symptoms or risk factors identified. Fall Risk None identified. Assessment: 08:30 General: Appears in no apparent distress. comfortable, Behavior is calm, cooperative, ca1 appropriate for age. Pain: Complains of pain in throat, and ear (R) Pain does not radiate. Pain currently is 7 out of 10 on a pain scale. Neuro: Level of Consciousness is awake, alert, obeys commands, Oriented to person, place, time, situation. Cardiovascular: Heart tones S1 S2 present Capillary refill < 3 seconds. Respiratory: Reports cough that is non-productive, Airway is patent Respiratory effort is even, unlabored, Breath sounds are clear bilaterally. GI: Abdomen is flat, non-distended, Bowel sounds present X 4 quads. Abd is soft and non tender X 4 quads. Reports vomiting. : No signs and/or symptoms were reported regarding the genitourinary system. EENT: Ear canal clear on right ear Throat is pink. Derm: Skin is intact, is healthy with good turgor, Skin is pink, warm \T\ dry. Musculoskeletal: Circulation, motion, and sensation intact. 09:10 Reassessment: Patient appears in no apparent distress at this time. Patient is alert, ca1 oriented x 3, equal unlabored respirations, skin warm/dry/pink. Patient states feeling better. Vital Signs: 08:26 BP 126 / 79; Pulse 102; Resp 16; Temp 98.5(TE); Pulse Ox 95% on R/A; Weight 81.65 kg; ss Height 5 ft. 5 in. (165.10 cm); Pain 7/10; 09:10 BP 128 / 76; Pulse 105; Resp 19; Pulse Ox 97% on R/A; ca1 08:26 Body Mass Index 29.95 (81.65 kg, 165.10 cm) ED Course: 08:21 Patient arrived in ED. mr 08:21 Arminda Irene MD is Private Physician. mr 08:25 Triage completed. ss 08:26 Arm band placed on right wrist. ss 08:27 Jacob Chilel PA is PHCP. cp 08:27 Kerline Logan MD is Attending Physician. cp 08:30 Patient has correct armband on for positive identification. Placed in gown. Bed in low ca1 position. Call light in reach. Side rails up X 1. property assessment monitor on. Pulse ox on. Warm blanket given. Head of bed elevated. 08:41 Becky Kramer, RN is Primary Nurse. ca1 09:19 No provider procedures requiring assistance completed. Patient did not have IV access ca1 during this emergency room visit. Administered Medications: 08:42 Drug: Tessalon Perle 200 mg Route: PO; ca1 09:12 Follow up: Response: No adverse reaction ca1 08:43 Drug: AtroVENT Aerosol 0.5 mg Route: Inhalation; ca1 08:45 Drug: Albuterol 2.5 mg Route: Inhalation; ca1 Outcome: 09:05 Discharge ordered by . cp 09:19 Discharged to home ambulatory. ca1 09:19 Condition: stable 09:19 Discharge instructions given to patient, Instructed on discharge instructions, follow up and referral plans. medication usage, Demonstrated understanding of instructions, follow-up care, medications, Prescriptions given X 4. 09:21 Patient left the ED. ca1 Signatures: Tawnya De La Cruz Shelby, RN RN ss Jacob Chilel PA PA cp Acob, Cheryl, RN RN ca1 Corrections: (The following items were deleted from the chart) 08:27 08:24 Presenting complaint: Patient states: cough x 3-4 weeks that is now causing ss patient to vomit which then leads to a headache. ss
--- NOTE | 2018-10-16 09:07 | EDPHYS ---
Physician Documentation [facility] Name: Laisha Hayes Age: 28 yrs Sex: Female : 1990 Arrival Date: 10/16/2018 Time: 08:21 Bed 15 Private MD: Arminda Irene K ED Physician Kerline Logan HPI: 10/16 08:50 This 28 yrs old Female presents to ER via Ambulatory with complaints of cp Cough, Sore Throat, Vomiting. 08:50 The patient or guardian reports cough, that is constant, with productive sputum. Onset: cp The symptoms/episode began/occurred 2-3 weeks ago. Severity of symptoms: in the emergency department the symptoms are unchanged. Associated signs and symptoms: Pertinent positives: earache, vomiting, Pertinent negatives: chest pain, diarrhea. 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 - Social history:: Smoking status: Patient/guardian denies using tobacco. - Ebola Screening: : Patient denies exposure to infectious person Patient denies travel to an Ebola-affected area in the 21 days before illness onset. ROS: 08:55 Eyes: Negative for injury, pain, redness, and discharge. cp 08:55 Constitutional: Negative for body aches, chills, fever, poor PO intake. 08:55 ENT: Positive for ear pain, Negative for drainage from ear(s), sore throat, difficulty swallowing, difficulty handling secretions. 08:55 Cardiovascular: Negative for chest pain. 08:55 Respiratory: Positive for cough, Negative for shortness of breath, wheezing. 08:55 Abdomen/GI: Positive for vomiting, Negative for abdominal pain, diarrhea, constipation. 08:55 Skin: Negative for cellulitis, rash. 08:55 Neuro: Positive for headache, Negative for altered mental status, weakness. 08:55 All other systems are negative. Exam: 08:57 Head/Face: Normocephalic, atraumatic. cp 08:57 Constitutional: The patient appears in no acute distress, alert, awake, non-toxic, well developed, well nourished. 08:57 Eyes: Periorbital structures: appear normal, Conjunctiva: normal, no exudate, no injection, Sclera: no appreciated abnormality, Lids and lashes: appear normal, bilaterally. 08:57 ENT: External ear(s): are unremarkable, Ear canal(s): are normal, clear, TM's: erythema, that is moderate, on the right, Examination of the other ear shows no obvious abnormality, Nose: is normal, Mouth: Lips: moist, Oral mucosa: pink and intact, moist, Posterior pharynx: Airway: no evidence of obstruction, patent, Tonsils: with erythema, no enlargement, no exudate, Uvula: midline, swelling, is not appreciated, erythema, that is mild, exudate, is not appreciated. 08:57 Neck: ROM/movement: is normal, is supple, without pain, no range of motions limitations, no meningismus, no nuchal rigidity, Lymph nodes: no appreciated lymphadenopathy. 08:57 Chest/axilla: Inspection: normal, Palpation: is normal, no crepitus, no tenderness. 08:57 Cardiovascular: Rate: tachycardic, Rhythm: regular, Heart sounds: murmur, not appreciated. 08:57 Respiratory: the patient does not display signs of respiratory distress, Respirations: normal, no use of accessory muscles, no retractions, no splinting, no tachypnea, labored breathing, is not present, Breath sounds: bronchial sounds, that are mild, are heard diffusely, decreased breath sounds, are not appreciated, stridor, is not appreciated, + upper airway congestion. wheezing: is not appreciated. 08:57 Abdomen/GI: Exam negative for discomfort, distension, guarding, Inspection: abdomen appears normal. 08:57 Skin: cellulitis, is not appreciated, no rash present. Vital Signs: 08:26 BP 126 / 79; Pulse 102; Resp 16; Temp 98.5(TE); Pulse Ox 95% on R/A; Weight 81.65 kg; ss Height 5 ft. 5 in. (165.10 cm); Pain 7/10; 09:10 BP 128 / 76; Pulse 105; Resp 19; Pulse Ox 97% on R/A; ca1 08:26 Body Mass Index 29.95 (81.65 kg, 165.10 cm) MDM: 08:28 Patient medically screened. cp 08:45 Differential Diagnosis: Bronchitis Sinusitis Otitis Media Asthma Exacerbation Viral cp Syndrome Pneumonia. 09:05 Data reviewed: vital signs, nurses notes, old medical records. Counseling: I had a cp detailed discussion with the patient and/or guardian regarding: the historical points, exam findings, and any diagnostic results supporting the discharge/admit diagnosis, the need for outpatient follow up, a family practitioner, to return to the emergency department if symptoms worsen or persist or if there are any questions or concerns that arise at home. Administered Medications: 08:42 Drug: Tessalon Perle 200 mg Route: PO; ca1 09:12 Follow up: Response: No adverse reaction ca1 08:43 Drug: AtroVENT Aerosol 0.5 mg Route: Inhalation; ca1 08:45 Drug: Albuterol 2.5 mg Route: Inhalation; ca1 Disposition: 18:26 Co-signature as Attending Physician, Kerline Logan MD. ma2 Disposition: 10/16/18 09:05 Discharged to Home. Impression: Otitis media, unspecified, right ear, Acute bronchitis, unspecified. - Condition is Stable. - Discharge Instructions: Acute Bronchitis, Adult, Otitis Media, Adult. - Prescriptions for Biaxin 500 mg Oral Tablet - take 1 tablet by ORAL route every 12 hours for 10 days; 20 tablet. Tessalon Perles 100 mg Oral Capsule - take 2 capsule by ORAL route every 8 hours As needed; 30 capsule. Medrol (Gavin) 4 mg Oral Tablets, Dose Pack - take 1 tablet by ORAL route as directed - follow package instructions; 1 packet. Albuterol Sulfate 90 mcg/actuation - inhale 1-2 puff by INHALATION route every 4-6 hours; 1 Inhaler. - Work release form, Medication Reconciliation Form, Thank You Letter, Antibiotic Education, Prescription Opioid Use form. - Follow up: Private Physician; When: 2 - 3 days; Reason: Recheck today's complaints. - Problem is an ongoing problem. - Symptoms have improved. Signatures: Nilam Prado RN RN Jacob Chilel PA PA cp Alzahri, Mohammad, MD MD ma2 Becky Kramer RN RN ca1 Corrections: (The following items were deleted from the chart) 09:21 09:05 10/16/2018 09:05 Discharged to Home. Impression: Otitis media, unspecified, right ca1 ear; Acute bronchitis, unspecified. Condition is Stable. Forms are Medication Reconciliation Form, Thank You Letter, Antibiotic Education, Prescription Opioid Use. Follow up: Private Physician; When: 2 - 3 days; Reason: Recheck today's complaints. Problem is an ongoing problem. Symptoms have improved. cp
== END 2018-10-16 09:21 | disposition home or self-care (01) ==
LOC: ER 08:18
DX: H66.91 Otitis media, unspecified, right ear (principal); J20.9 Acute bronchitis, unspecified; D64.9 Anemia, unspecified
CPT/HCPCS: 99284